=== PATIENT | female | born 2000 | race Caucasian/White ===

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

== ENCOUNTER 2019-02-09 03:21 | Emergency (ER) | payer MEDICAID, SELFPAY ==
[2019-02-09 03:22] VITALS: BP 130/81; PULSE 94; RESP 16; TEMP 36.7; O2SAT 99; BMI 42.3
[2019-02-09 04:09] LABS: Absolute Lymphocyte Count 1.79 X10^3/uL (0.83-4.51); Absolute Neutrophil Count 12.7 X10^3/uL (2.0-7.7); Basophil# 0.07 X10^3/uL; Basophil% 0.4 % (0-1); Eosinophil# 0.12 X10^3/uL; Eosinophils% 0.8 % (0-5); Hematocrit 44.2 % (37-47); Hemoglobin 14.8 g/dL (12.0-15.0); Lymphocyte # 1.79 X10^3/ul (4.0); Lymphocyte % 11.4 % (19-41); Mean Corp Hgb Conc 33.5 g/dL (32-36); Mean Corpuscular Hgb 31.9 pg (27.0-32.0); Mean Corpuscular Volume 95.3 fL (81-99); Mean Platelet Vol. 9.6 fl (6.2-12.0); Monocyte# 0.94 X10^3/uL; NRBC Flagged by Analyzer 0 % (0-5); Neutrophil # 12.69 X10^3/uL (2.7-7.7); Neutrophil % 80.4 % (47-70); Platelet Count 326 K/mm3 (150-450); RBC Distribution Width CV 12.5 % (11.6-14.6); RBC Distribution Width SD 43.1 fl (35.1-43.9); Red Blood Count 4.64 M/mm3 (4.2-5.4); White Blood Count 15.8 K/mm3 (4.4-11.0)
[2019-02-09] MEDS: 0.9% Normal Saline 1,000 ML 1000 ML IV (04:18)
[2019-02-09] MEDS: Ondansetron 4 MG/2 ML Vial IV (04:19)
[2019-02-09 04:22] LABS: Internal QC Validated? YES +Cl - CLEAR BKGD; Pregnancy, Serum, hCG Quali. NEGATIVE Negative
[2019-02-09 04:25] LABS: Mucous, Urine 0 SEEN /hpf (<or=2+); Red Blood Cells-Urine 0 SEEN /hpf (0-5)
[2019-02-09 04:26] LABS: Color, Urine Yellow (Yellow); Glucose, Dipstick Normal (Normal); Ketone-Dipstick Negative (Negative); Leukocyte Esterase-Dipstick 100 /ul (Negative); Nitrite-Dipstick Negative (Negative); Occult Blood-Urine Negative /ul (Negative); Protein-Dipstick Negative (Negative); Urine Bilirubin Dipstick Negative (Negative); Urine Clarity Sl. Cloudy (Clear); Urine Urobilinogen Normal (Normal)
[2019-02-09 04:27] LABS: ALB/GLOB Ratio 0.9 RATIO (0.9-2.4); AST(SGOT) 14 U/L (15-37); Alanine Aminotransfer ALT/SGPT 31 U/L (13-56); Albumin, Serum 3.6 g/dL (3.2-5.0); Alkaline Phosphatase 94 U/L (45-117); Anion Gap 7 (5-15); BUN 7 mg/dL (7-18); BUN/Creat Ratio 9.9 RATIO (10-20); Calcium,Total 8.6 mg/dL (8.5-10.1); Chloride 104 mmol/L (98-107); Creatinine, Serum 0.71 mg/dL (0.55-1.02); EST Glomerular Filtration Rate 113 mL/min (>60); Est Glom Filt Rate - Afr Amer 136 mL/min (>60); Estimated Creatinine Clearance 114.68 ml/min; Glucose 96 mg/dL (74-106); Lipase 82 U/L (73-393); Potassium 4.2 mmol/L (3.5-5.1); Protein, Total 7.6 g/dL (6.4-8.2); Sodium Level 139 mmol/L (136-145)
--- NOTE | 2019-02-09 04:28 | CT_ITS ---
STUDY: CT ABDOMEN AND PELVIS WITH CONTRAST REASON FOR EXAM: Female, 18 years old. Right lower quadrant pain, nausea. RADIATION DOSAGE (If Supplied By Facility): CTDIvol = ( 18.63 ) mGy, DLP = ( 1351.28 ) mGycm TECHNIQUE: Transaxial images were obtained from the dome of the diaphragm to the symphysis pubis with oral contrast. IV/Oral Isovue 300 100 was administered. Sagittal and coronal images were reconstructed. Individualized dose optimization techniques were used for this CT. COMPARISON: None. FINDINGS: The visualized lung bases are unremarkable. The visualized portions of the heart are within normal limits. Normal liver. Normal gallbladder and extrahepatic biliary system. Normal spleen. Normal pancreas. Normal bilateral adrenal glands. Normal right kidney. Normal left kidney. Normal visualized stomach. Normal small intestine. Normal colon. The appendix is visualized and appears normal. Normal abdominal aorta. Normal inferior vena cava. Normal retroperitoneum. Normal urinary bladder. Normal visualized uterus. Normal abdominal wall. There are diffuse degenerative changes of the visualized lumbar spine. CT/Abdomen/Pelvis WITH Contrast IMPRESSION: No acute process throughout the abdomen and pelvis seen. Specifically, no evidence of appendicitis. Abdominal viscera within normal limits. Electronically Signed: Natalee Galloway MD at 7:23 EST , Service support ,
--- NOTE | 2019-02-09 04:29 | ED.DCSUM_ITS ---
- ER Visit Summary Date of Service: 02/09/19 Chief Complaint: Vomiting History of Present Illness: The patient is a 18 F presenting with vomiting. Patient states that she has had several episodes of vomiting today. She denies blood in her emesis. She also complains of right lower quadrant abdominal pain. Denies fever or chills. She has been mildly constipated. Denies bad food exposure. Denies sick contacts. She is unsure if she could be . Denies other complaints. Physical Examination: Vitals are stable. Patient is afebrile. Alert no acute distress. HEENT exam is unremarkable. Neck is supple. Lungs are clear and equal bilaterally. Heart is regular rate and rhythm. Abdomen is soft right lower quadrant tenderness with no rebound or guarding Extremities are unremarkable. Skin is warm and dry. Remainder of exam is unremarkable. Emergency Department Course and Treatment: Patient was given IV fluids, Zofran. CBC shows white count 15.8. Chemistries unremarkable. Lipase is normal. Urinalysis unremarkable. hCG negative. CT abdomen pelvis shows no acute process throughout the abdomen and pelvis seen. Specifically, no evidence of appendicitis. Abdominal viscera within normal limits. Patient was able to tolerate p.o. in the emergency department. On reevaluation, she is resting comfortably. Advised to follow-up with primary care physician. She is given prescription for Zofran. Advised return to the ED for worsening complaints. Disposition: Discharge home Impression: Abdominal pain This note was generated with [employer] dictation software. It may contain incorrect words, spelling, and punctuation that were not noted in review of the chart prior to signing ED Disposition - Plan for ED Patient: Instructions: VOMITING (5y-Adult) Prescriptions: Ondansetron [Zofran Odt] 4 mg PO Q8H PRN PRN #10 tab PRN Reason: Nausea Prescription Printed Referrals: Care Physician,No Primary [Primary Care Provider] -
[2019-02-09 04:31] LABS: Bacteria RARE /hpf (None Seen)
[2019-02-09 04:32] LABS: Squamous Epithelial Cells - UA 0-5 SEEN /hpf (5-10); White Blood Cells 0-5 SEEN /hpf (0-5)
[2019-02-09 05:22] VITALS: BP 132/80; PULSE 89; RESP 17; O2SAT 97
--- NOTE | 2019-02-09 07:26 | ED.DEP ---
ED Disposition - Plan for ED Patient: Instructions: VOMITING (5y-Adult) Prescriptions: Ondansetron [Zofran Odt] 4 mg PO Q8H PRN PRN #10 tablet PRN Reason: Nausea Referrals: Care Physician,No Primary [Primary Care Provider] -
[2019-02-09 07:38] VITALS: BP 97/63; PULSE 93; RESP 16; O2SAT 100
== END 2019-02-09 07:39 | disposition home or self-care (01) ==
PROVIDERS: Emergency Provider Emergency Medicine
DX: R10.31 Right lower quadrant pain (principal); K59.00 Constipation, unspecified; R11.2 Nausea with vomiting, unspecified; Z72.0 Tobacco use
CPT/HCPCS: 74177; 80053; 81001; 83690; 84703; 85025; 96361; 96374; 99283; J7030; Q9967; A4216; J2405

== ENCOUNTER 2019-03-01 07:02 | Emergency (ER) | payer MEDICAID, SELFPAY ==
[2019-03-01 07:04] VITALS: BP 117/46; PULSE 95; RESP 18; TEMP 36.4; O2SAT 98; BMI 42.3
[2019-03-01] MEDS: 0.9% Normal Saline 1,000 ML 1000 ML IV (07:30)
[2019-03-01] MEDS: Ketorolac 30 MG/ML Syringe IV (07:30)
[2019-03-01] MEDS: Ondansetron 4 MG/2 ML Vial IV (07:30)
[2019-03-01 07:37] LABS: Absolute Lymphocyte Count 1.72 X10^3/uL (0.83-4.51); Absolute Neutrophil Count 4.6 X10^3/uL (2.0-7.7); Basophil# 0.02 X10^3/uL; Basophil% 0.3 % (0-1); Eosinophil# 0.15 X10^3/uL; Hematocrit 42.1 % (37-47); Hemoglobin 14.1 g/dL (12.0-15.0); Lymphocyte # 1.72 X10^3/ul (4.0); Lymphocyte % 23.3 % (19-41); Mean Corp Hgb Conc 33.5 g/dL (32-36); Mean Corpuscular Hgb 31.5 pg (27.0-32.0); Mean Platelet Vol. 9.9 fl (6.2-12.0); Monocyte# 0.87 X10^3/uL; Monocyte% 11.8 % (0-10); NRBC Flagged by Analyzer 0 % (0-5); Neutrophil # 4.55 X10^3/uL (2.7-7.7); Neutrophil % 61.8 % (47-70); Platelet Count 303 K/mm3 (150-450); RBC Distribution Width CV 12.7 % (11.6-14.6); RBC Distribution Width SD 43.6 fl (35.1-43.9); Red Blood Count 4.48 M/mm3 (4.2-5.4); White Blood Count 7.4 K/mm3 (4.4-11.0)
--- NOTE | 2019-03-01 07:40 | ED.VISSUMM ---
- ER Visit Summary Date of Service: 03/01/19 Chief Complaint: Vomiting and diarrhea History of Present Illness: The patient is a [address] Ana Solano. She reports that she has upper abdominal pain that began 2 days ago. Yesterday she began vomiting. She vomited 4 times. No blood or emesis. She is had 2 episodes of diarrhea yesterday and today. Describes this as watery. No blood in her stools or black tarry stools. Patient reports that it is a constant cramping pain that is 8 out of 10 at worst and 6 out of 10 currently is worsened by movement. Its unchanged by food. Is relieved by remaining still. She reports that her mother has vomiting and diarrhea as well. She has not been camping or out of the country. No possible bad food exposure. She does not drink well water. No recent antibiotics. Patient denies any fever or chills. She denies any dysuria or frequency. Her LNMP was 3 weeks ago. No vaginal bleeding or discharge. No family history of Crohn's or ulcerative colitis. Physical Examination: Vitals: Stable. Afebrile. General: Well-nourished and well-developed. Head: Normocephalic atraumatic. Neck: Supple, no lymphadenopathy. No JVD. Nontender. Cardiovascular: Regular rate and rhythm. No murmurs. Respiratory: No respiratory distress. Clear to auscultation bilaterally. Abdominal: Soft, moderate epigastric tenderness to palpation and mild left lower quadrant tenderness to palpation, nondistended, normal bowel sounds. No guarding, rebound, or peritoneal signs. No pain in the right upper or right lower quadrants. Negative Plummer sign. Back: Nontender. Extremities: Nontender, no edema. Skin: Normal color, no rash. Neurologic: Alert and oriented ?3. Cranial nerves II through XII are intact. Normal strength and sensation. Psych: Normal affect. Test Results: CBC shows monocytes 12. Chem-7 shows potassium 3.3, chloride 109, calcium of 8.4. test is negative. Emergency Department Course and Treatment: Patient had an IV placed. She is given a liter normal saline. She was given Toradol and Zofran IV. She is resting comfortably. Treatment Plan: Patient will be discharged with Zofran. She is instructed on symptomatic care. Follow-up Dr. Ana Solano in 1 to 2 days if not improving. Return to the emergency department for any worsening symptoms. Disposition: To home in improved and stable condition. Impression: 1. Vomiting/diarrhea. This note was generated with [employer] dictation software. It may contain incorrect words, spelling, and punctuation that were not noted in review of the chart prior to signing ED Disposition - Plan for ED Patient: Instructions: VOMITING AND DIARRHEA, Nonspecific (Adult) Prescriptions: Ondansetron [Zofran Odt] 4 mg PO Q8H PRN PRN #10 tablet PRN Reason: Nausea Referrals: Ana Solano MD [Primary Care Provider] - 1-2 Days if not improving
[2019-03-01 07:53] LABS: Internal QC Validated? YES +Cl - CLEAR BKGD; Pregnancy, Serum, hCG Quali. NEGATIVE Negative
[2019-03-01 07:55] LABS: AST(SGOT) 22 U/L (15-37); Alanine Aminotransfer ALT/SGPT 34 U/L (13-56); Albumin, Serum 3.5 g/dL (3.2-5.0); Alkaline Phosphatase 94 U/L (45-117); Anion Gap 7 (5-15); BUN 9 mg/dL (7-18); BUN/Creat Ratio 11.2 RATIO (10-20); Calcium,Total 8.4 mg/dL (8.5-10.1); Chloride 109 mmol/L (98-107); Creatinine, Serum 0.81 mg/dL (0.55-1.02); EST Glomerular Filtration Rate 97 mL/min (>60); Est Glom Filt Rate - Afr Amer 117 mL/min (>60); Estimated Creatinine Clearance 100.52 ml/min; Globulin 3.4 g/dL (2.2-4.2); Glucose 101 mg/dL (74-106); Lipase 110 U/L (73-393); Potassium 3.3 mmol/L (3.5-5.1); Protein, Total 6.9 g/dL (6.4-8.2); Sodium Level 142 mmol/L (136-145)
[2019-03-01 08:38] VITALS: BP 109/47; PULSE 82; RESP 16; O2SAT 100
== END 2019-03-01 08:39 | disposition home or self-care (01) ==
LOC: ED 07:47
PROVIDERS: Emergency Provider Emergency Medicine; Family Provider Pediatrics; PCP Pediatrics
DX: R11.2 Nausea with vomiting, unspecified (principal); R19.7 Diarrhea, unspecified; R10.10 Upper abdominal pain, unspecified; R05 Cough
CPT/HCPCS: 80053; 83690; 84703; 85025; 96361; 96374; 96375; 99283; J2405

== ENCOUNTER 2019-11-15 15:05 | Emergency (ER) | payer MEDICAID, SELFPAY ==
[2019-11-15 15:05] VITALS: BP 154/95; PULSE 87; RESP 18; TEMP 36.3; O2SAT 96; BMI 43.9
[2019-11-15 15:30] LABS: Bacteria 0 SEEN /hpf (None Seen); Mucous, Urine 0 SEEN /hpf (<or=2+)
[2019-11-15 15:33] LABS: Glucose, Dipstick Normal (Normal); Ketone-Dipstick 5 mg/dl (Negative); Leukocyte Esterase-Dipstick 500 /ul (Negative); Nitrite-Dipstick Negative (Negative); Occult Blood-Urine 250 /ul (Negative); Protein-Dipstick 100 mg/dl (Negative); Urine Bilirubin Dipstick Negative (Negative); Urine Urobilinogen Normal (Normal)
[2019-11-15 15:34] LABS: Color, Urine RED (Yellow)
[2019-11-15 15:35] LABS: Urine Clarity Cloudy (Clear)
[2019-11-15 15:40] LABS: Internal QC Validated? YES +Cl - CLEAR BKGD; Pregnancy, Urine Negative Negative
[2019-11-15 15:44] LABS: Red Blood Cells-Urine > 100 SEEN /hpf (0-5); Squamous Epithelial Cells - UA 0-5 SEEN /hpf (5-10); White Blood Cells 10-25 SEEN /hpf (0-5)
--- NOTE | 2019-11-15 15:48 | ED.VIS.GEN ---
History of Present Illness Informant: Patient Onset: Yesterday Context: Gradual Onset Timing: Continuous Quality: bleeding Location: vaginal bleeding Current Severity: Moderate Maximum Severity: Severe Worsened by: Nothing Relieved by: nothing Narrative: 19-year-old female presents to the emergency department vaginal bleeding. Patient had a normal menstrual cycle earlier this month about 2-1/2 to 3 weeks ago. However yesterday she started to have more bleeding and she states that it is similar in severity to 1 of her regular menstrual cycles including the one that she already had this month. She is not having any significant pain. She is not concerned for . She is not on any blood thinners. She is not having urinary symptoms. She does not feel lightheaded or dizzy. She has never needed a blood transfusion. She has not noticed any clots or tissue. Rest of review of systems negative Prior similar symptoms: No Recent Illness/Hospitalization: No <Marcus Vee - Last Filed: 11/15/19 16:53> <Dedra Yen - Last Filed: 11/16/19 00:54> Chief Complaint: Vag Bleeding Past Medical History Prior records reviewed: Yes Past Medical History: None Surgical History: no surgical history Lives: With Family Smoking Status: Former smoker Alcohol: None Drugs: None <Marcus Vee - Last Filed: 11/15/19 16:53> <Dedra Yen - Last Filed: 11/16/19 00:54> - Allergies and Home Meds Allergies/Adverse Reactions: Allergies amoxicillin Allergy (Verified 11/15/19 15:07) Rash codeine Adverse Reaction (Verified 11/15/19 15:07) PASSED OUT Primary Care Physician: Rafael Addison MD [STAFF PHYSICIAN] - As soon as possible [facility] [GROUP OF PHYSICIANS] - 11/18/19 Review of Systems All systems negative except as indicated General: Denies: Chills, Fever, Sweats Eyes: Denies: Visual changes - bilaterally, Diplopia ENT: Denies: Rhinorrhea, Sore throat Cardiovascular: Denies: Chest pain, Palpitations Respiratory: Denies: Dyspnea, Cough, Dyspnea on exertion Gastrointestinal: Denies: Abdominal pain, Nausea, Vomiting, Diarrhea, Melena, Hematochezia Genitourinary: Reports: - - Vaginal bleeding. Denies: Dysuria, Hematuria, Frequency Musculoskeletal: Denies: Back pain, Extremity Pain Skin: Denies: Rash, Wounds Neurological: Denies: Headache, Weakness, Numbness <Marcus Vee - Last Filed: 11/15/19 16:53> Physical Exam Vital Signs/Narrative: Vital Signs Temp Pulse Resp BP Pulse Ox 11/15/19 15:05 97.3 F L 87 18 154/95 H 96 Inital Vital Signs reviewed: Yes General: Well nourished, Well developed, No Acute Distress Head: Normocephalic, Atraumatic Eyes: Perrl, EOMI ENT: Moist mucous membranes, No rhinorrhea Neck: Supple, Nontender Cardiovascular: Regular rate, Regular rhythm, No murmurs Respiratory: No distress, CTA bilaterally, Chest nontender Abdomen: Soft, Nontender, Nondistended, Normal bowel sounds Back: Nontender, Normal Inspection. Negative for: CVA tenderness Extremities: Nontender, No edema Skin: Normal color, No rash Neurological: Alert, Oriented x3, Cranial nerves II-XII grossly intact, Normal Strength, Normal Sensation Psychological: Normal affect, Normal Mood <NandaMarcus - Last Filed: 11/15/19 16:53> Diagnostic/Tx/Re-eval Laboratory Tests 11/15/19 11/15/19 Range/Units 15:20 15:20 Urine Color RED (Yellow) Urine Clarity Cloudy (Clear) Urine pH 5.0 (5.0 - 8.0) Ur Specific Mathews 1.020 (1.002-1.030) Urine Protein 100 H (Negative) mg/dl Urine Glucose (UA) Normal (Normal) mg/dl Urine Ketones 5 H (Negative) mg/dl Urine Occult Blood 250 H (Negative) /ul Urine Nitrite Negative (Negative) Urine Bilirubin Negative (Negative) mg/dL Urine Urobilinogen Normal (Normal) mg/dl Ur Leukocyte Esterase 500 H (Negative) /ul Urine RBC > 100 SEEN (0-5) /hpf Urine WBC 10-25 SEEN (0-5) /hpf Ur Squamous Epith Cells 0-5 SEEN (5-10) /hpf Urine Bacteria 0 SEEN (None Seen) /hpf Urine Mucus 0 SEEN (<or=2+) /hpf Urine Test Negative Negative - Medical Decision Making Patient's was negative. Urinalysis negative. Patient has told nurse that she feels depressed therefore she did speak with her manager social responsibility. The patient is not suicidal or homicidal. The manager social responsibility set her up to have an appointment on Monday with the intensive outpatient behavioral health program. The patient is contracted for safety. She has no guns or stockpile of medications at the home. She has lots of reasons for living. We feel comfortable with discharging the patient. She will follow-up on Monday <Marcus Vee - Last Filed: 11/15/19 16:53> - Medical Decision Making I have personally performed a [id number] assessment of the patient and have reviewed the PA note. My campoverde findings include 19-year-old female presenting for irregular vaginal bleeding. She states that she had a menstrual period earlier in October and started having bleeding again. She denies pelvic pain. Denies lightheadedness or syncope. She denies possibility of . Vitals were stable. Abdomen is soft and nontender. test was negative. Patient mentioned to the nurse that she has been feeling depressed. She was evaluated by social work in the emergency department. She was set up for outpatient follow-up. She denies suicidal or homicidal ideation. Advised return to the ED for worsening complaints. <Dedra Yen - Last Filed: 11/16/19 00:54> ED Disposition <Marcus Vee - Last Filed: 11/15/19 16:53> <Dedra Yen - Last Filed: 11/16/19 00:54> - Plan for ED Patient: Disposition: Home or Assisted Living Diagnosis: Dysmenorrhea, Depression Instructions: ED Depression, ED Bleed Irregular Vaginal Referrals: Rafael Addison MD [STAFF PHYSICIAN] - As soon as possible [facility] [GROUP OF PHYSICIANS] - 11/18/19
[2019-11-15 17:07] VITALS: RESP 16
--- NOTE | 2019-11-15 17:07 | ED.RN ---
REVIEWED D/C INSTRUCTIONS, FOLLOW UP CARE, AND S/S THAT WOULD WARRANT A RETURN TO THE ED WITH PT. PT VERBALIZED AN UNDERSTANDING AND DENIES FURTHER QUESTIONS FOR THIS RN. PT SKIN P/W/D, RESP EVEN AND UNLABORED, PT A&O X 3, NO DISTRESS NOTED. PT AMBULATED OUT OF ED, GAIT STEADY.
--- NOTE | 2019-11-15 17:13 | CM.ED ---
Social Work Assessment Emergency department Patient Address: [address] [place] [address] ([place] [address] [place] [address] Rd[address]) Phone number: [phone] Date of Referral and intervention: 11/15/2019 Time of Intervention: 1540 5-1700 Presenting concern: Patient presents to emergency department with complaints of vaginal bleeding and concern for . Reason for Referral: During triage assessment for concerns related to vaginal bleeding the patient endorsed also feeling depressed without suicidal ideation. History obtained from: Medical records and the patient Household composition: Patient reports to live with a close family friend named Mignon, and Mignon's 2 children ages 5 and 3 years old. Patient states home situation is safe and adequate. Patient's family status: Patient is a 19-year-old single female. Patient reports her mother is a local, along with an 18-year-old sister. Medical History: Patient reports concern for vaginal bleeding because she already had her menstrual cycle earlier in October. Patient endorses history of an elective a couple of years ago, and then a miscarriage in December 2018. Patient reports a couple of years ago there was possible concern about thyroid issues, but patient has not followed up about this. Educational Status: Patient graduated from high school, and is able to read, write, and understand what is read. 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 Transportation: Patient denies any issues with transportation. Patient drove herself to the emergency department. Programs/Agencies Involved: Patient has care source Medicaid through job and family services. Children Services/Legal Issues: Not discussed. Behavioral Health Issues: Mental Health History: Patient reports has been diagnosed with depression since the age of 17. Patient endorses anxiety also. Patient reports at the onset of depression diagnosis patient was prescribed Lexapro by Dr. Ana Solano. Reports took this medication for only 1 month, felt like it was not helping, and stopped. Denies any other medication history since that time. Patient reports while in high school did have counseling at [facility]. Patient does endorse a trauma history, though did not go into detail of this. Did indicate trauma history going back to childhood, and also coinciding with the that resulted in an elective . SI/HI history: Patient endorses history of 1 suicide attempts about 5 months ago (the end of winter/beginning of spring 2019). Patient reports that she went to the bathroom and took some pills. Patient reports she does not remember what kind of pills, or how many pills she took. No medical treatment was sought. Patient reports Mignon called patient's mother, mother's boyfriend, and patient's siblings. Family then called the police who arrived to the home and talk to the patient. Patient reports she told everybody she was really okay, and minimized her actions. Patient denies any action regarding self-harm or suicide since that 1 episode. Denies any history of self injury. Denies any history of homicidal ideation, plan, or intent. When asked about homicidal ideation patient's response was I am not crazy. Substance Use History: Not discussed. No indication record regarding substance use concerns. Family History: Patient reports family history of depression and anxiety. Patient reports her sister may have just been diagnosed with bipolar disorder. Drug Screens: No drug screens noted. Coping Skills: Patient reports to enjoy fishing, listening to music, and talking with Mignon. Family/Social Stressors: Patient reports a miscarriage in December 2018. Reports her grandmother recently had a stroke, was in [place] [facility], and recently discharged home. Patient reports that between patient's mother and patient herself they are providing supplemental care to the patient's grandmother. Patient reports that she broke up with her boyfriend of 1 year in July, in order to try to find herself. Patient reports would like to have a job, and feels that she needs something to do. Patient also identifies stress from worrying that we will never be able to become and keep the , due to history of elective (via pill form) a couple of years ago. Support Systems: Patient reports Mignon is a strong support person in patient's life. Patient talks about several friends and does have family in this area. ASSESSMENT: Met with patient and introduced to social work role and reason for visit. Patient endorses having depression for a couple of years. Endorses over the last couple of months that has been a buildup of things causing patient to feel overwhelmed, as patient does not talk about what is bothering her. PHQ 9: Patient with a score of 13 today on the PHQ 9 falling into the moderate range of depression. More than half days endorsed for feeling down and depressed, difficulty sleeping, fluctuating appetite, and feeling bad about herself. All other symptoms were several days over the last 2 weeks including thoughts of being better off , without active plan/ideation plan/intent to kill or harm herself.. Patient reports that does not want to have these thoughts of wanting to or no longer be here, and reports that it upsets patient even more that she is having these thoughts. Patient denies when thoughts are present, that there have been any movements towards planning, determining the method, or intent/action to harm herself. Patient denies any action or intent to kill self since the one episode patient endorsed happening 5 months ago. Denies any access to lethal means such as firearms or stockpiled medications. Reason to live: Patient states that the children living in the home with are a strong reason for the patient to want to live. Patient also states to be a [employer] and this is another factor in why patient would not actually want to take her life. Patient also reports to know that if takes own life this would create more sadness in others and does not want to do this. Coping skills: Fishing, listening to music, cleans, and talks to Mignon. Plan for safety: Should any thoughts of wanting to surface patient verbally contracts to talk with Mignon. Patient states to feel safe and denies any intent to harm herself, or any active thoughts to harm herself. Mental status: Patient alert and oriented, affect constricted and body posture tense upon social work entering the room. Patient teary-eyed, and quickly moved to openly crying. Noted when patient was discussing the children who live in the home, patient's affect brightened and patient smiled. Eye contact adequate, thought process logical and intact, speech within normal limits, motor activity within normal limits. Mood depressed/sad. Patient denies any hallucinations or delusions. Does endorse periodically feeling a tingling and like bugs are crawling on her skin when she is going to sleep. Explored with patient what the patient is willing to do at this time for her emotional health. Patient acknowledges that depression is not getting better and it may be time to add additional support. Patient initially hesitant about counseling, voicing belief that all counselors want to do is focus on the past. Educated patient to various reasons as to why counselors often explore past history, but that many counselors will create goals that align with patient's own goals for recovery. Discussed individual counseling, intensive outpatient programming, and medications. Patient does not currently have a primary care doctor other than her clinical laboratory technician whom patient has not seen in some time. Patient reports may call the clinical laboratory technician to see if can get an appointment. Patient accepted brochures on the [facility] intensive outpatient program and agreed to a referral for an assessment. Reviewed dates and times with patient, and patient chose 11/18/2019 at 1400 for assessment with behavioral health staff. Patient was educated that part of the intensive outpatient programming is group treatment. Interventions: Supportive listening, encouragement, and reflection provided with patient this date. Referral to [facility] program set referral form faxed to [phone]. PLAN: Patient to discharge home. Follow-up at [facility] program set for assessment on 11.18.2019 at 1400. No other services requested or indicated. -RYNE Banegas MSW *Information documented in this assessment generated with [employer]*
== END 2019-11-15 17:12 | disposition home or self-care (01) ==
PROVIDERS: Emergency Provider Physician Assistant Medical
DX: N94.6 Dysmenorrhea, unspecified (principal); F32.9 Major depressive disorder, single episode, unspecified; Z87.891 Personal history of nicotine dependence
CPT/HCPCS: 81001; 81025; 99283

== ENCOUNTER 2020-01-21 16:27 | Emergency (ER) | payer MEDICAID, SELFPAY ==
[2020-01-21 16:28] VITALS: BP 147/81; PULSE 97; RESP 17; TEMP 36.4; O2SAT 98; BMI 43.3
--- NOTE | 2020-01-21 16:56 | ED.VIS.GEN ---
History of Present Illness Chief Complaint: Nausea/Vomiting/Diarrhea Informant: Patient Onset: Yesterday Context: Gradual Onset Timing: Continuous Current Severity: Moderate Maximum Severity: Moderate Narrative: The patient is a 19-year-old female who is otherwise healthy that presents to the emergency department due to concern for foodborne illness. Patient states that she had [place] last night. She states that a few hours later, she began with some abdominal cramping. She is had a few bouts of vomiting that has been nonbloody or nonbilious. She is also had some loose, watery diarrhea. She denies any fevers or chills. She states she did take some ibuprofen which seemed to help. She states now, she is just having some nausea. She denies any other systemic complaints. She is otherwise been in her normal state of health. Prior similar symptoms: No Recent Illness/Hospitalization: No Past Medical History - Allergies and Home Meds Allergies/Adverse Reactions: Allergies amoxicillin Allergy (Verified 01/21/20 16:28) Rash codeine Adverse Reaction (Verified 01/21/20 16:28) PASSED OUT Primary Care Physician: Care Physician,No Primary [Primary Care Provider] - Prior records reviewed: Yes Past Medical History: None Surgical History: no surgical history Smoking Status: Former smoker Review of Systems General: Denies: Chills, Fever, Sweats Eyes: Denies: Visual changes - bilaterally, Diplopia ENT: Denies: Rhinorrhea, Sore throat Cardiovascular: Denies: Chest pain, Palpitations Respiratory: Denies: Dyspnea, Cough, Dyspnea on exertion Gastrointestinal: Denies: Abdominal pain, Nausea, Vomiting, Diarrhea, Melena, Hematochezia Genitourinary: Denies: Dysuria, Hematuria, Frequency Musculoskeletal: Denies: Back pain, Extremity Pain Skin: Denies: Rash, Wounds Neurological: Denies: Headache, Weakness, Numbness Physical Exam Vital Signs/Narrative: Vital Signs Temp Pulse Resp BP Pulse Ox 01/21/20 16:28 97.5 F L 97 17 147/81 H 98 Inital Vital Signs reviewed: Yes General: Well nourished, Well developed, No Acute Distress Head: Normocephalic, Atraumatic Eyes: Perrl, EOMI ENT: Moist mucous membranes, No rhinorrhea Neck: Supple, Nontender Cardiovascular: Regular rate, Regular rhythm, No murmurs Respiratory: No distress, CTA bilaterally, Chest nontender Abdomen: Soft, Nontender, Nondistended, Normal bowel sounds Back: Nontender, Normal Inspection Extremities: Nontender, No edema Skin: Normal color, No rash Neurological: Alert, Oriented x3, Cranial nerves II-XII grossly intact, Normal Strength, Normal Sensation Psychological: Normal affect, Normal Mood Diagnostic/Tx/Re-eval - Medical Decision Making Patient's abdomen is soft and nontender. She has no rebound or guarding. Her symptoms do seem most consistent with foodborne illness. I do not feel that laboratory evaluation is necessary. Patient was given oral Zofran and observed. She did have some improvement of her nausea. P.o. challenge was given. She was able to tolerate it with resolution of symptoms. The patient will be treated symptomatically. She will be discharged home. Impression 1. Gastroenteritis ED Disposition - Plan for ED Patient: Instructions: ED Food Poison Or Gastroenteritis Prescriptions: Ondansetron [Zofran Odt] 4 mg PO Q8H PRN PRN #10 tab PRN Reason: Nausea Prescription Printed Referrals: Care Physician,No Primary [Primary Care Provider] -
[2020-01-21] MEDS: Ondansetron ODT 4 MG Tablet PO (17:18)
[2020-01-21 17:41] VITALS: RESP 18
== END 2020-01-21 18:52 | disposition home or self-care (01) ==
LOC: ED 17:12
PROVIDERS: Emergency Provider Emergency Medicine
DX: K52.9 Noninfective gastroenteritis and colitis, unspecified (principal)
CPT/HCPCS: 99281

== ENCOUNTER 2020-02-03 11:23 | Emergency (ER) | payer MEDICAID, SELFPAY ==
[2020-02-03 11:24] VITALS: BP 136/83; PULSE 102; RESP 18; TEMP 36.4; O2SAT 99; BMI 39.4
--- NOTE | 2020-02-03 11:42 | ED.VIS.PSYCH ---
History of Present Illness Chief Complaint: Mental Health Informant: Patient Onset: - - Long time Context: Gradual Onset Conflict: - - Life Timing: Continuous Current Severity: Moderate Maximum Severity: Moderate Associated Symptoms: Depressed, Decreased Interest, Suicidal Thoughts. Negative for: Change in Eating, Change in sleeping, Guilt, Decreased Concentration Specific plan (suicidal thought): No suicidal ideation or plan Narrative: Patient has been having thoughts of suicide, and she has longstanding depression. She states she used to be on Lexapro but it did not work too well for her, so she stopped taking it herself and this was about a year or so ago. She denies any injury or self injury. No recent illness. She does not want to harm herself, she really just wants to get into a counselor and someone that might be able to prescribe her an antidepressant, she is unaware of any local resources. - Past Medical History (1) Depression Status: Chronic Past Medical History - Allergies and Home Meds Allergies/Adverse Reactions: Allergies amoxicillin Allergy (Verified 02/03/20 11:23) Rash codeine Adverse Reaction (Verified 02/03/20 11:23) PASSED OUT Primary Care Physician: Care Physician,No Primary [Primary Care Provider] - Surgical History: no surgical history Smoking Status: Former smoker Drugs: None Review of Systems General: Denies: Chills, Fever, Sweats Eyes: Denies: Visual changes - bilaterally, Diplopia ENT: Denies: Rhinorrhea, Sore throat Cardiovascular: Denies: Chest pain, Palpitations Respiratory: Denies: Dyspnea, Cough, Dyspnea on exertion Gastrointestinal: Denies: Abdominal pain, Nausea, Vomiting, Diarrhea, Melena, Hematochezia Genitourinary: Denies: Dysuria, Hematuria, Frequency Musculoskeletal: Denies: Back pain, Extremity Pain Skin: Denies: Rash, Wounds Neurological: Denies: Headache, Weakness, Numbness Psych: Reports: Depression, Suicidal thoughts. Denies: Anxiety, Suicidal ideations Physical Exam Vital Signs/Narrative: Vital Signs Temp Pulse Resp BP Pulse Ox 02/03/20 11:24 97.6 F L 102 H 18 136/83 H 99 Inital Vital Signs reviewed: Yes General: Well nourished, Well developed, - - Well-appearing no acute distress, pleasant, cooperative Head: Normocephalic, Atraumatic Eyes: Perrl, EOMI Neck: Supple, Nontender Cardiovascular: Regular rate, Regular rhythm, No murmurs. Negative for: Tachycardia Respiratory: No distress, CTA bilaterally, Chest nontender Extremities: Nontender, No Edema Skin: Normal color, No rash Neurological: Alert, Oriented x3, Cranial nerves II-XII grossly intact, Normal Strength, Normal Sensation Psych: Normal Speech Pattern, Logical sequential goal directed thoughts, No suicidal or homicidal ideation, Normal Stable Appropriate Affect, Good Insight, Good Judgement Diagnostic/Tx/Re-eval Patient states she contracts for safety and has no intent on harming herself, and feels safe until she can follow-up with mental health. She was given resources, I do not think she needs an emergent crisis evaluation, and we did contact them to discuss with him the fact that we would like her to be seen within the next 1 to 2 weeks if possible. Patient is also given resources and reasons to return and she is comfortable with that plan. ED Disposition - Plan for ED Patient: Disposition: Home or Assisted Living Diagnosis: Depression Instructions: ED Depression, CONTRACT, No Harm Referrals: Counseling,Center [GROUP OF PHYSICIANS] - As soon as possible Emmie Jett MD [STAFF PHYSICIAN] - (for primary care/medications if indicated)
--- NOTE | 2020-02-03 12:02 | CM.ED ---
Social Work Consult: Mental Health Informant: Dr. Espinal Chief Complaint: Patient reports to have been off Lexapro for the past 2 years, to need to set up a counselor and to not have a primary care provider (PCP). Living Situation: Lives with mother, Yumiko Rincon at [address] [place] [address] Support/Resources: History of counseling through [facility] when I was younger. No active counseling services or community resources. History: None Education/Employment History: Currently works at [employer]. Denies any issues with comprehension or understanding. Mental Health Treatment/History: Denies having any formal diagnosis. Patient reports to believe that patient has Depression and Anxiety. Patient reports mental health history in patient family. Patient denies any history of inpatient psychiatric placement. Patient reports to have been on Lexapro in the past but it did not work. Patient is open to taking medication again, if recommended. Abuse Issues: Denies Substance Abuse Hx: Denies Risk to Self/Others: Denies active suicidal thoughts/plans/intents. Patient reports history of suicidal thoughts about 1 year ago. Patient denies history of suicidal attempt. Patient denies ever thinking out how patient would complete suicide. Patient denies homicidal thoughts/plans/intents. Patient denies history of violence against self or others. Mental Status Exam: A&Ox3 Appearance/General Behavior: Clean, Appropriate. Calm. Mood/Affect: Pleasant and engaged affect. Communication Pattern: Responds to questions. Thought Process: Appropriate. Denies V/A hallucinations or paranoia. Judgement: Good Assessment: Met with patient in room. Introduced self and social staff worker role. Patient agreeable to speak with this social staff worker. Patient reports a desire to get connected with counseling services/supports in the community. Patient open to this social staff worker providing list of local counseling agencies, crisis hotline, [facility] Behavioral Health information. This social staff worker also notes that patient does not have a PCP. Patient open to receive list of PCP's that are in-network with patient insurance. Patient voices plan to set up PCP. Patient reports to be glad that patient co-worker brought patient to the emergency room today. Patient counseled on lethal means. Patient reports to have support from family. Patient agreeable to have crisis complete a follow up call with patient tomorrow to set up further counseling services/offer support. Patient reports to have transportation to home today. Patient denies further community needs. Active support and listening provided throughout conversation. Patient signing release of [facility]. Telephone call to Crisis, Amanda. Amanda to follow up with patient tomorrow. This social staff worker faxed release of information, face sheet and social work note to crisis. This social staff worker updated Dr. Espinal on above. PLAN: Discharge to home with crisis follow-up call tomorrow. Deni DAO, YADIRA
--- NOTE | 2020-02-03 12:13 | ED.RN ---
DISCHARGE INSTRUCTIONS GIVEN TO AND REVIEWED WITH PATIENT, PATIENT DENIES QUESTIONS OR CONCERNS AND VOICES UNDERSTANDING OF DISCHARGE INSTRUCTIONS. PT AMBULATES OUT OF ROOM WITHOUT DIFFICULTY.
== END 2020-02-03 12:14 | disposition home or self-care (01) ==
LOC: ED 12:01
PROVIDERS: Emergency Provider Emergency Medicine
DX: F32.9 Major depressive disorder, single episode, unspecified (principal); R45.851 Suicidal ideations; Z87.891 Personal history of nicotine dependence
CPT/HCPCS: 99282

== ENCOUNTER 2020-05-25 14:32 | Emergency (ER) | payer MEDICAID, SELFPAY ==
[2020-05-25 14:33] VITALS: BP 144/94; PULSE 107; RESP 18; TEMP 36.1; O2SAT 98; BMI 43.7
--- NOTE | 2020-05-25 14:42 | ED.DCSUM_ITS ---
History of Present Illness Chief Complaint: Abd Pain Informant: Patient Narrative: 19-year-old female G1, presenting with pelvic cramping. She states has been present for 4 days. She describes it as central. She has associated nausea. Patient has not been vomiting. She denies change in bowel habits. She is not had any vaginal bleeding or vaginal discharge. She denies dysuria or hematuria. Patient states the pain is about the same as its been for the last 4 days. She is not had fever, chills. - Past Medical History (1) Depression Status: Chronic Past Medical History - Allergies and Home Meds Allergies/Adverse Reactions: Allergies amoxicillin Allergy (Verified 05/25/20 14:36) Rash codeine Adverse Reaction (Verified 05/25/20 14:36) PASSED OUT Primary Care Physician: Care Physician,No Primary [Primary Care Provider] - Prior records reviewed: Yes Past Medical History: - - Reviewed in problem list Surgical History: no surgical history Lives: Alone Smoking Status: Former smoker Alcohol: None Drugs: None Review of Systems General: Denies: Chills, Fever, Sweats Eyes: Denies: Visual changes - bilaterally, Diplopia ENT: Denies: Rhinorrhea, Sore throat Cardiovascular: Denies: Chest pain, Palpitations Respiratory: Denies: Dyspnea, Cough, Dyspnea on exertion Gastrointestinal: Reports: Nausea. Denies: Abdominal pain, Vomiting Genitourinary: Reports: - - Pelvic pain. Denies: Dysuria, Hematuria Musculoskeletal: Denies: Myalgias, Arthralgias Skin: Denies: Rash, Abscess Neurological: Denies: Headache, Weakness, Parasthesia Psych: Denies: Depression, Anxiety Physical Exam Vital Signs/Narrative: Vital Signs Temp Pulse Resp BP Pulse Ox 05/25/20 14:33 97.0 F L 107 H 18 144/94 H 98 Inital Vital Signs reviewed: Yes General: Well nourished, No Acute Distress Head: Normocephalic, Atraumatic Eyes: Perrl ENT: Moist mucous membranes, No rhinorrhea Cardiovascular: Regular rate, Regular rhythm Respiratory: No distress, CTA bilaterally Back: Negative for: CVA tenderness, Spinal tenderness Skin: Normal color, No rash Neurological: Alert, Oriented x3 Psychological: Normal affect, Normal Mood Diagnostic/Tx/Re-eval Laboratory Data 05/25/20 05/25/20 05/25/20 14:55 14:55 14:59 WBC 11.9 H RBC 4.45 Hgb 15.0 Hct 42.2 MCV 94.8 MCH 33.7 H MCHC 35.5 RDW Std Deviation 45.1 H RDW Coeff of Sherry 14.5 Plt Count 283 MPV 10.2 Immature Gran % (Auto) 0.800 Neut % (Auto) 73.9 H Lymph % (Auto) 16.9 L [place] % (Auto) 7.1 Eos % (Auto) 1.0 Baso % (Auto) 0.3 Absolute Neuts (auto) 8.8 H Absolute Lymphs (auto) 2.02 Nucleated RBC % 0 Sodium 140 Potassium 4.0 Chloride 108 H Carbon Dioxide 27.0 Anion Gap 5 BUN 9 Creatinine 0.85 Estim Creat Clear Calc 91.17 Est GFR (MDRD) Af Amer 109 Est GFR (MDRD) Non-Af 90 BUN/Creatinine Ratio 10.6 Glucose 98 Calcium 9.0 Urine Color Yellow Urine Clarity Sl. Cloudy Urine pH 6.0 Ur Specific [place] 1.020 Urine Protein 30 H Urine Glucose (UA) Normal Urine Ketones Negative Urine Occult Blood 10 H Urine Nitrite Negative Urine Bilirubin Negative Urine Urobilinogen 1 H Ur Leukocyte Esterase 500 H Urine RBC 0-5 SEEN Urine WBC 10-25 SEEN Ur Squamous Epith Cells 0-5 SEEN Amorphous Sediment 1+ URATE Urine Bacteria 0 SEEN Urine Mucus 0 SEEN Urine Test Negative - Medical Decision Making Patient presenting with pelvic pain without any vaginal discharge or vaginal bleeding. She states her last menstrual period was about a month ago. Patient also states that this time that she has a history of ovarian cyst. Patient given IV Toradol with near complete resolution of her pain. Her lab work is unremarkable. Patient offered transvaginal ultrasound but declines. Patient counseled that if she has worsening of her pain or needs to be reseen to come back to the ER. She acknowledged understanding. Patient stable discharge at this time. Impression: 1. Pelvic pain ED Disposition - Plan for ED Patient: Referrals: Care Physician,No Primary [Primary Care Provider] -
[2020-05-25 15:08] LABS: Bacteria 0 SEEN /hpf (None Seen); Mucous, Urine 0 SEEN /hpf (<or=2+)
[2020-05-25 15:10] LABS: Absolute Lymphocyte Count 2.02 X10^3/uL (0.83-4.51); Absolute Neutrophil Count 8.8 X10^3/uL (2.0-7.7); Basophil# 0.04 X10^3/uL; Basophil% 0.3 % (0-1); Eosinophil# 0.12 X10^3/uL; Hematocrit 42.2 % (37-47); Lymphocyte # 2.02 X10^3/ul (4.0); Lymphocyte % 16.9 % (19-41); Mean Corp Hgb Conc 35.5 g/dL (32-36); Mean Corpuscular Hgb 33.7 pg (27.0-32.0); Mean Corpuscular Volume 94.8 fL (81-99); Mean Platelet Vol. 10.2 fl (6.2-12.0); Monocyte# 0.85 X10^3/uL; Monocyte% 7.1 % (0-10); NRBC Flagged by Analyzer 0 % (0-5); Neutrophil # 8.81 X10^3/uL (2.7-7.7); Neutrophil % 73.9 % (47-70); Platelet Count 283 K/mm3 (150-450); RBC Distribution Width CV 14.5 % (11.6-14.6); RBC Distribution Width SD 45.1 fl (35.1-43.9); Red Blood Count 4.45 M/mm3 (4.2-5.4); White Blood Count 11.9 K/mm3 (4.4-11.0)
[2020-05-25 15:13] LABS: Color, Urine Yellow (Yellow); Glucose, Dipstick Normal (Normal); Ketone-Dipstick Negative (Negative); Leukocyte Esterase-Dipstick 500 /ul (Negative); Nitrite-Dipstick Negative (Negative); Occult Blood-Urine 10 /ul (Negative); Protein-Dipstick 30 mg/dl (Negative); Urine Bilirubin Dipstick Negative (Negative); Urine Clarity Sl. Cloudy (Clear); Urine Urobilinogen 1 mg/dl (Normal)
[2020-05-25 15:21] LABS: Amorphous Sediment 1+ URATE; Internal QC Validated? YES +Cl - CLEAR BKGD; Pregnancy, Urine Negative Negative; Red Blood Cells-Urine 0-5 SEEN /hpf (0-5); Squamous Epithelial Cells - UA 0-5 SEEN /hpf (5-10); White Blood Cells 10-25 SEEN /hpf (0-5)
[2020-05-25 15:23] LABS: Anion Gap 5 (5-15); BUN 9 mg/dL (7-18); BUN/Creat Ratio 10.6 RATIO (10-20); Chloride 108 mmol/L (98-107); Creatinine, Serum 0.85 mg/dL (0.55-1.02); EST Glomerular Filtration Rate 90 mL/min (>60); Est Glom Filt Rate - Afr Amer 109 mL/min (>60); Estimated Creatinine Clearance 91.17 ml/min; Glucose 98 mg/dL (74-106); Sodium Level 140 mmol/L (136-145)
[2020-05-25] MEDS: Ketorolac 15 MG/ML Vial IV (16:22)
[2020-05-25] MEDS: Ondansetron 4 MG/2 ML Vial IV (16:22)
[2020-05-25 17:30] VITALS: BP 133/78; PULSE 91; RESP 16; O2SAT 99
== END 2020-05-25 17:31 | disposition home or self-care (01) ==
PROVIDERS: Emergency Provider Student in an Organized Health Care Education/Training Program
DX: R10.2 Pelvic and perineal pain (principal); R11.0 Nausea; Z87.891 Personal history of nicotine dependence
CPT/HCPCS: 80048; 81001; 81025; 85025; 96374; 96375; 99282; A4216; J2405

== ENCOUNTER → 2020-06-04 13:44 | Outpatient (CLI) | payer MEDICAID, SELFPAY ==
[2020-05-25 14:33] VITALS: BMI 43.7
[2020-06-04 14:55] LABS: Hemoglobin 14.7 g/dL (12.0-15.0); Mean Corp Hgb Conc 33.4 g/dL (32-36); Mean Corpuscular Volume 92.8 fL (81-99); Mean Platelet Vol. 10.4 fl (6.2-12.0); Platelet Count 401 K/mm3 (150-450); RBC Distribution Width CV 12.6 % (11.6-14.6); RBC Distribution Width SD 43.6 fl (35.1-43.9); Red Blood Count 4.74 M/mm3 (4.2-5.4); White Blood Count 11.2 K/mm3 (4.4-11.0)
[2020-06-04 15:13] LABS: hCG Titer Quant., Serum < 1 mIU/mL (1-3)
[2020-06-04 15:15] LABS: Hemoglobin A1c 4.5 % (3.8-5.6)
[2020-06-04 15:22] LABS: Cholesterol 164 mg/dL (200); Follicle Stimulating Hormone 4.2 mIU/mL; High Density Lipoprotein 59 mg/dL; Luteinizing Hormone 11.9 mIU/mL; Prolactin 7.3 ng/mL; T4 Free Direct 1.03 ng/dL (0.76-1.46); Thyroid Stim Hormone (TSH) 2.34 uIU/mL (0.358-3.74); Triglycerides 100 mg/dL; Very Low Density Lipoprotein 20 mg/dL (5-40)
[2020-06-10 08:55] LABS: Testosterone Free 2.2 pg/mL (0.0-4.2)
[2020-06-15 10:49] LABS: 17-Hydroxyprogesterone 62 ng/dL (.)
== END ==
PROVIDERS: Visit Provider Obstetrics & Gynecology
DX: N92.5 Other specified irregular menstruation (principal)
CPT/HCPCS: 36415; 80061; 82627; 83001; 83002; 83036; 83498; 84146; 84402; 84439; 84443; 84702; 85027; 86900; 86901; 82626

== ENCOUNTER 2020-08-29 05:52 | Emergency (ER) | payer MEDICAID, SELFPAY ==
[2020-08-29 05:53] VITALS: BP 155/106; PULSE 112; RESP 18; TEMP 36; O2SAT 98; BMI 45.5
--- NOTE | 2020-08-29 06:01 | RAD_ITS ---
STUDY: X-RAY - RIGHT ANKLE REASON FOR EXAM: Female, 20 years old. injury TECHNIQUE: 3 view(s) of the ankle. COMPARISON: None. FINDINGS: Normal visualized distal tibia and fibula. Normal medial and lateral malleoli. Normal tibiotalar articulation and ankle mortise. Normal visualized talus and calcaneus. The visualized subtalar, talonavicular, calcaneocuboid and tarsal articulations are normal. Lateral soft tissue swelling consistent with ligamentous injury. RAD/Ankle min 3 Views IMPRESSION: No fracture or dislocation. Lateral soft tissue swelling consistent with ligamentous injury. Electronically Signed: Moshe Melgoza MD at 6:41 EDT Tel , Service support ,
--- NOTE | 2020-08-29 06:01 | ED.VIS.LOWEX ---
HPI History of Present Illness Chief Complaint: Lower Extremity Injury Informant: patient Narrative Narrative: 20-year-old female presents with right ankle injury. She states that approximately 6 days ago she was walking on a hill when the grass was wet and she slipped sustaining an inversion injury. She states she has been icing and elevating it and taking Tylenol and Motrin but it continues to be painful to ambulate so she needed to be evaluated. She denies any other injuries or concerns tonight. PFSH PFSH Home Medications NK 08/29/20 [History Last Taken Unknown] Allergy/AdvReac Type Severity Reaction Status Date / Time amoxicillin Allergy Rash Verified 08/29/20 05:54 codeine AdvReac PASSED Verified 08/29/20 05:54 OUT Surgical History History of tonsillectomy Social History (Updated 08/29/20 @ 06:[address] Chris Alegre DO) Smoking Status: Former smoker substance use type: does not use ROS ROS ED Constitutional Constitutional ED: Denies chills or weight loss Eyes Eyes: Denies change in vision or diplopia ENT ENT ED: Denies ear pain, rhinorrhea or sore throat Cardiovascular Cardiovascular: Denies chest pain, orthopnea, palpitations or racing heartbeat Respiratory/Chest Respiratory/Chest: Denies cough, dyspnea or orthopnea Gastrointestinal Gastrointestinal: Denies abdominal pain, diarrhea, nausea or vomiting Genitourinary Genitourinary ED: Denies dysuria, hematuria or urinary frequency Musculoskeletal Musculoskeletal: Reports other Details: See history of present illness ; Denies arthralgias or myalgias Integumentary Denies abscess or rash Neurologic Neurologic: Denies headache(s) or weakness Psychiatric Psychiatric: Denies anxiety, depression, suicidal ideation or suicidal thoughts Endocrine Endocrinology: Denies polydipsia, polyphagia or polyuria Allergic/Immunologic Allergic/Immunologic ED: Denies mouth swelling, tongue swelling or urticaria EXAM Physical Exam Const Vital Signs: 08/29/20 05:53 Temperature 96.8 F L Temperature Source Temporal Pulse Rate 112 H Respiratory Rate 18 Blood Pressure 155/106 H Blood Pressure Mean 122 Pulse Ox 98 Positive well nourished and well developed General Appearance ED: well developed HEENT Reports normocephalic, head/scalp atraumatic and moist mucous membranes Eyes PERRL and EOMs intact bilaterally Neck no lymphadenopathy, supple and no JVD Resp normal respiratory effort and clear to auscultation bilaterally Cardio regular rate, regular rhythm and no murmurs GI normal to inspection, nondistended, normoactive bowel sounds and non-tender Palpation: soft Back/Spine no CVA tenderness and normal ROM Extremity Extremity Narrative: Right ankle demonstrates swelling and tenderness over the lateral malleolus. There is no medial malleoli or pain. Achilles is intact on direct testing. No fifth metatarsal pain or fibular head pain. There is some mild ecchymosis noted. General Extremety ED: Yes edema General Extremity: edema Neuro oriented x3 and CN's II-XII intact bilaterally Sensorium / Orientation: alert Motor Exam: strength 5/5 throughout Psych mental status grossly normal Mood & Affect: Negative for depressed or tearful Skin no rashes or lesions noted and no wounds MDM MDM MDM Narrative Medical decision making narrative: My interpretation of the plain films of the right ankle is no acute fracture. Soft tissue swelling noted. Patient was placed in air splint. Follow-up with primary care or podiatry 10 to 14 days if not improving. Radiography Diagnostic Testing: Radiology Impression Ankle X-Ray 08/29/20 06:01 IMPRESSION: No fracture or dislocation. Lateral soft tissue swelling consistent with ligamentous injury. Electronically Signed: Moshe Melgoza MD at 6:41 EDT Tel , Service support , Discharge Plan Triage Chief Complaint: Lower Extremity Injury ED Provider: Chris Alegre Dx/Rx/DC Orders Clinical Impression: Right ankle sprain Instructions: ED Ankle Sprain (Adult) Prescriptions: No Action NK RF: 0 Primary Care Provider: Care Physician,No Primary Referrals: Quinn Cazares DPM [STAFF PHYSICIAN] - 10-14 Days if not better Care Physician,No Primary [Primary Care Provider] - Disposition Disposition: Home, self care
[2020-08-29 07:09] VITALS: PULSE 112; RESP 15; O2SAT 98
== END 2020-08-29 07:10 | disposition home or self-care (01) ==
PROVIDERS: Emergency Provider Emergency Medicine
DX: S93.401A Sprain of unspecified ligament of right ankle, initial encounter (principal); X50.1XXA Overexertion from prolonged static or awkward postures, initial encounter; Y93.01 Activity, walking, marching and hiking; Y92.9 Unspecified place or not applicable; Y99.9 Unspecified external cause status; Z87.891 Personal history of nicotine dependence
CPT/HCPCS: 73610; 99283

== ENCOUNTER 2021-10-07 14:17 | Emergency (ER) | payer MEDICAID, SELFPAY ==
[2021-10-07 14:18] VITALS: BP 108/91; PULSE 88; RESP 14; TEMP 36.6; O2SAT 99; BMI 38.2
[2021-10-07 14:41] VITALS: RESP 16
--- NOTE | 2021-10-07 14:41 | ED.VIS.BACK ---
HPI History of Present Illness Chief Complaint: Back Detail of Chief Complaint: Back pain for 3 days Informant: patient Narrative Narrative: Patient presents to the emergency department complaint of back pain at*3 days ago. Patient states that she has been moving for the last 3 days and has been lifting different objects but nothing of significant weight. 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 She complains of pain in the right lower back without any radiation down the legs or into the abdomen. She denies paresthesias in the extremities. She denies weakness in extremities. Patient denies urinary symptoms. Patient believes she recently got over a UTI and she had leftover antibiotics from prior UTI that she took and her symptoms resolved. Patient currently rates her pain a 7 out of 10. [facility] Medical History (Updated 10/07/21 @ 14:[address] Stormy Alvarado, ) COVID-19 Medical History no medical history Home Medications bupropion HCl 150 mg 24 hr tablet, extended release 150 mg PO QAM #20 tabs 02/09/21 [Rx Last Taken Unknown] hydroxyzine HCl 50 mg tablet 50 mg PO QHS #20 tabs 02/09/21 [Rx Last Taken Unknown] guaifenesin 1,200 mg tablet, extended release 12 hr 1,200 mg PO BID PRN congestion #14 tabs 09/09/21 [Rx Last Taken Unknown] loratadine 10 mg tablet (Claritin) 10 mg PO DAILY PRN allergic symptoms #14 tabs 09/09/21 [Rx Last Taken Unknown] cyclobenzaprine 10 mg tablet 10 mg PO TID PRN Muscle Spasm #20 TABLETS 10/07/21 [Rx Last Taken Unknown] hydrocodone-acetaminophen 5-325mg 5mg-325mg 1 tab PO Q4H PRN PRN Pain 2 days #10 TABLETS 10/07/21 [Rx Last Taken Unknown] naproxen 500 mg tablet 500 mg PO BID #14 tabs 10/07/21 [Rx Last Taken Unknown] Allergy/AdvReac Type Severity Reaction Status Date / Time amoxicillin Allergy Rash Verified 10/07/21 14:20 codeine AdvReac PASSED Verified 10/07/21 14:20 OUT Family History (Updated 01/26/21 @ 11:15 by Heide Vo AD OPERATIONS COORDINATOR, AD OPERATIONS COORDINATOR-C) Mother Anxiety and depression Lupus Father Anxiety and depression Diabetes Type II Schizophrenia Paranoia Grandmother Colon cancer Diabetes Type II Hypertension Family History no significant family his Surgical History (Updated 01/26/21 @ 11:11 by Heide Vo NP, AD OPERATIONS COORDINATOR-C) History of tonsillectomy Surgical History no surgical history Social History (Updated 01/26/21 @ 11:16 by Heide Vo NP, AD OPERATIONS COORDINATOR-C) household members: significant other and children current occupational status: employed sexually active: Yes Smoking Status: Former smoker alcohol intake: never substance use type: does not use what type of physical activity do you participate in: additional details: Cardio frequency: 5-6 times per week duration: 30-45 minutes/day ROS ROS ED Review of Systems ROS Unobtainable: other Constitutional Constitutional ED: Reports lethargy; Denies chills, fever(s), sweats or weight loss Eyes Eyes: Denies blurry vision, change in vision or diplopia ENT ENT ED: Denies rhinorrhea or sore throat Cardiovascular Cardiovascular: Reports chest pain and racing heartbeat; Denies orthopnea Respiratory/Chest Respiratory/Chest: Reports dyspnea and dyspnea on exertion; Denies cough, orthopnea or sputum Gastrointestinal Gastrointestinal: Denies abdominal pain, diarrhea, nausea or vomiting Genitourinary Genitourinary ED: Denies dysuria, hematuria or urinary frequency Musculoskeletal Musculoskeletal: Reports back pain; Denies arthralgias, myalgias or neck pain Integumentary Denies abscess, Abrasions or rash Neurologic Neurologic: Denies headache(s) or weakness Psychiatric Psychiatric: Denies anxiety, depression or suicidal thoughts Endocrine Endocrinology: Denies polydipsia, polyphagia or polyuria Hematologic/Lymphatic Hematologic/Lymphatic: Denies easy bleeding, easy bruising or lymphadenopathy Allergic/Immunologic Allergic/Immunologic ED: Denies mouth swelling, tongue swelling or urticaria EXAM Physical Exam Const Vital Signs: 10/07/21 14:18 Temperature 97.9 F Temperature Source Temporal Pulse Rate 88 Respiratory Rate 14 Blood Pressure 108/91 H Blood Pressure Mean 96 Pulse Ox 99 Oxygen Delivery Method Room Air Positive well nourished and well developed General Appearance ED: well developed and NAD HEENT Reports TM's clear and moist mucous membranes normocephalic and atraumatic; Negative for trauma or tenderness Tympanic Membrane ED: Yes TM's clear Eyes PERRL and EOMs intact bilaterally General Eye ED: Negative for pale conjunctiva or scleral icterus Neck no lymphadenopathy, supple and no JVD General: Negative for tenderness Chest Wall inspection of chest normal and palpation of chest normal Chest: Negative for tenderness Resp normal respiratory effort and clear to auscultation bilaterally Effort and Inspection: Negative for respiratory distress or pain with movement Auscultation: Negative for rhonchi, wheezes or diminished lung sounds Cardio regular rate, regular rhythm, S1 normal heart sound, S2 normal heart sound and no murmurs Peripheral Pulses: pulses 2+ throughout GI normal to inspection, nondistended, normoactive bowel sounds, soft to palpation, non-tender, non-distended and no masses Back/Spine no CVA tenderness and no thoracic nor lumbar tenderness Back/Spine Narrative: Patient has tenderness palpation over the right lumbar paraspinal musculature that reproduces her pain. Her pain is positional with certain movements. She has negative straight leg raises. Deep tendon reflexes are plus 2 out of 4 bilaterally at the patella and Achilles. Patient has normal L5 extension bilaterally. Patient has normal sensation to light touch. Extremity normal to inspection General Extremety ED: Negative for edema General Extremity: Negative for edema Neuro oriented x3, CN's II-XII intact bilaterally, no sensory deficits noted and gait normal Sensorium / Orientation: awake, alert, oriented to person, oriented to place and oriented to time Motor Exam: strength 5/5 throughout and strength abnormal Psych mental status grossly normal Skin no rashes or lesions noted and no wounds MDM MDM MDM Narrative Medical decision making narrative: I feel patient has muscular pain. She will be given a prescription for Naprosyn, Flexeril, and a few [place] for pain. She is advised to follow-up with primary care physician corporate relations director for no doc within next 3 to 5 days. Patient has no signs or symptoms of cauda equina or red flag symptoms. I do not feel imaging is indicated as she has had no trauma and she has no bony tenderness on exam. Discharge Plan Triage Chief Complaint: Back ED Provider: Stormy Alvarado Dx/Rx/DC Orders Clinical Impression: Back pain Instructions: ED Back Spasm, No Trauma Prescriptions: New cyclobenzaprine [cyclobenzaprine] 10 mg tablet 10 mg PO TID PRN (Reason: Muscle Spasm) Qty: 20 0RF hydrocodone-acetaminophen [hydrocodone-acetaminophen] 5-325 mg tablet 1 tab PO Q4H PRN PRN (Reason: Pain) 2 Days Qty: 10 0RF naproxen 500 mg tablet 500 mg PO BID Qty: 14 0RF No Action hydroxyzine HCl 50 mg tablet 50 mg PO QHS Qty: 20 0RF bupropion HCl 150 mg tablet extended release 24 hr 150 mg PO QAM Qty: 20 0RF loratadine [Claritin] 10 mg tablet 10 mg PO DAILY PRN (Reason: allergic symptoms) Qty: 14 0RF guaifenesin 1,200 mg tablet extended release 12hr 1,200 mg PO BID PRN (Reason: congestion) Qty: 14 0RF Primary Care Provider: Richelle Desai Referrals: Richelle Desai MD [Primary Care Provider] - 3-5 Days Disposition Disposition: Home, Self Care
== END 2021-10-07 14:52 | disposition home or self-care (01) ==
LOC: ED 14:49
PROVIDERS: Emergency Provider Emergency Medicine; Visit Provider Emergency Medicine
DX: M54.50 Low back pain, unspecified (principal); Z87.891 Personal history of nicotine dependence
CPT/HCPCS: 99282

== ENCOUNTER 2021-11-10 14:47 | Emergency (ER) | payer MEDICAID, SELFPAY ==
[2021-11-10 14:48] VITALS: BP 132/94; PULSE 112; RESP 16; TEMP 36.1; O2SAT 96; BMI 38.2
--- NOTE | 2021-11-10 15:05 | EDS_ITS ---
HPI History of Present Illness HPI Narrative: Patient presents with right knee pain that began 5 days ago. Patient noticed a bruise over the anterior and lateral aspect of her right knee. Patient does not remember any specific trauma. Patient describes the pain as sharp and throbbing. Patient states her pain is worse with flexion of the knee. Patient denies any paresthesias or weakness. Patient denies any swelling. Patient also states her pain is worse with ambulation. Chief Complaint: Lower Extremity Injury Informant: patient Onset/Context/Timing Onset: Days (5) Context: Gradual Onset Quality of Pain: Sharp and Throbbing Location: Right knee Worsened by: Flexion, ambulation Relieved by: Nothing Associated Symptoms Associated Symptoms: Negative for Parasthesia, Weakness or Loss of Funtion [facility] Medical History COVID-19 Home Medications bupropion HCl 150 mg 24 hr tablet, extended release 150 mg PO QAM #20 tabs 02/09/21 [Rx Last Taken Unknown] hydroxyzine HCl 50 mg tablet 50 mg PO QHS #20 tabs 02/09/21 [Rx Last Taken Unknown] guaifenesin 1,200 mg tablet, extended release 12 hr 1,200 mg PO BID PRN congestion #14 tabs 09/09/21 [Rx Last Taken Unknown] loratadine 10 mg tablet (Claritin) 10 mg PO DAILY PRN allergic symptoms #14 tabs 09/09/21 [Rx Last Taken Unknown] cyclobenzaprine 10 mg tablet 10 mg PO TID PRN Muscle Spasm #20 TABLETS 10/07/21 [Rx Last Taken Unknown] hydrocodone-acetaminophen 5-325mg 5mg-325mg 1 tab PO Q4H PRN PRN Pain 2 days #10 TABLETS 10/07/21 [Rx Last Taken Unknown] naproxen 500 mg tablet 500 mg PO BID #14 tabs 10/07/21 [Rx Last Taken Unknown] Allergy/AdvReac Type Severity Reaction Status Date / Time amoxicillin Allergy Rash Verified 11/10/21 14:47 codeine AdvReac PASSED Verified 11/10/21 14:47 OUT Family History (Updated 01/26/21 @ 11:15 by Heide Vo ANSWERING SERVICE TELEPHONE OPERATOR, ANSWERING SERVICE TELEPHONE OPERATOR-C) Mother Anxiety and depression Lupus Father Anxiety and depression Diabetes Type II Schizophrenia Paranoia Grandmother Colon cancer Diabetes Type II Hypertension Surgical History History of tonsillectomy Social History household members: significant other and children current occupational status: employed sexually active: Yes Smoking Status: Former smoker alcohol intake: never substance use type: does not use what type of physical activity do you participate in: additional details: Cardio frequency: 5-6 times per week duration: 30-45 minutes/day ROS ROS ED Constitutional Constitutional ED: Denies chills or fever(s) Eyes Eyes: Denies blurry vision or change in vision ENT ENT ED: Denies rhinorrhea or sore throat Cardiovascular Cardiovascular: Denies chest pain or palpitations Respiratory/Chest Respiratory/Chest: Denies cough or dyspnea Gastrointestinal Gastrointestinal: Denies nausea or vomiting Genitourinary Genitourinary ED: Denies dysuria or hematuria Musculoskeletal Musculoskeletal: Denies back pain or neck pain Integumentary Denies abscess or rash Neurologic Neurologic: Reports headache(s); Denies weakness Allergic/Immunologic Allergic/Immunologic ED: Denies mouth swelling or urticaria EXAM Physical Exam Const Vital Signs: 11/10/21 14:48 Temperature 96.9 F L Temperature Source Temporal Pulse Rate 112 H Respiratory Rate 16 Blood Pressure 132/94 H Blood Pressure Mean 106 Pulse Ox 96 Oxygen Delivery Method Room Air Positive well nourished, well developed and obese General Appearance ED: well developed and NAD Nutritional Appearance: obese HEENT Reports moist mucous membranes Neck full ROM Extremity Extremity Narrative: There is tenderness over the anterior lateral aspect of the right knee. There is also some mild tenderness along the medial joint line. There is no effusion. There is no bony crepitance or step-off. Range of motion was limited in flexion of the knee past 30 degrees. Extensor mechanism is intact. There is no laxity appreciated. There is no deformity noted. Pedal pulses are equal bilaterally. Sensation was intact to light touch bilaterally in the lower extremities. Neuro oriented x3, CN's II-XII intact bilaterally, moves all extremities and no sensory deficits noted Sensorium / Orientation: alert Motor Exam: strength 5/5 throughout Psych mental status grossly normal MDM MDM MDM Narrative Medical decision making narrative: X-rays of the right knee were obtained. There are 4 views. On my interpretation, there is no acute fracture. There is no dislocation. There are some mild degenerative changes. There is no soft tissue swelling. Radiologist also interpreted the x-rays and agrees. Patient was advised of her findings. Patient was instructed to ice and elevate the right knee. Patient was instructed to take Tylenol and ibuprofen as needed for pain. Patient was given referral for primary care physician. Patient was instructed to follow-up in 5 to 7 days. Patient understood and was agreeable with the plan. All questions were answered. Radiography Diagnostic Testing: Clinical Impression(s) from Imaging Studies Knee X-Ray 11/10/21 15:19 IMPRESSION: Degenerative changes, no evidence of acute osseous or nodularity is seen Electronically Signed: Jorgito Georges MD at 15:37 EDT , Discharge Plan Triage Chief Complaint: Lower Extremity Injury ED Provider: Jose E Luu Dx/Rx/DC Orders Clinical Impression: Contusion of right knee, initial encounter, Obesity (BMI 30-39.9) Instructions: ED Contusion, Lower Extremity Prescriptions: No Action hydroxyzine HCl 50 mg tablet 50 mg PO QHS Qty: 20 0RF bupropion HCl 150 mg tablet extended release 24 hr 150 mg PO QAM Qty: 20 0RF loratadine [Claritin] 10 mg tablet 10 mg PO DAILY PRN (Reason: allergic symptoms) Qty: 14 0RF guaifenesin 1,200 mg tablet extended release 12hr 1,200 mg PO BID PRN (Reason: congestion) Qty: 14 0RF cyclobenzaprine [cyclobenzaprine] 10 mg tablet 10 mg PO TID PRN (Reason: Muscle Spasm) Qty: 20 0RF hydrocodone-acetaminophen [hydrocodone-acetaminophen] 5-325 mg tablet 1 tab PO Q4H PRN PRN (Reason: Pain) 2 Days Qty: 10 0RF naproxen 500 mg tablet 500 mg PO BID Qty: 14 0RF Primary Care Provider: Care Physician,No Primary Referrals: Cynthia Casiano MD [Med Staff - Auto Air Conditioning Apprentice] - 5-7 Days Care Physician,No Primary [Primary Care Provider] - Disposition Disposition: Home, Self Care
--- NOTE | 2021-11-10 15:19 | RAD_ITS ---
INDICATION: Injury/Pain EXAMINATION/TECHNIQUE: X-RAY - RIGHT XR Knee Complete 4 Views or More 4 VIEWS COMPARISON: None. FINDINGS: SOFT TISSUES: No soft tissue swelling or gas. No radiopaque foreign body. BONES/JOINTS: No acute fracture or subluxation.. Normal alignment. Degenerative changes. No sclerotic or destructive changes observed. RAD/Knee 4 or More Views IMPRESSION: Degenerative changes, no evidence of acute osseous or nodularity is seen Electronically Signed: Jorgito Georges MD at 15:37 EDT ,
[2021-11-10] MEDS: Ibuprofen 600 MG Tablet PO (15:28)
== END 2021-11-10 16:05 | disposition home or self-care (01) ==
PROVIDERS: Emergency Provider Emergency Medicine; Visit Provider Emergency Medicine
DX: S80.01XA Contusion of right knee, initial encounter (principal); X58.XXXA Exposure to other specified factors, initial encounter; E66.9 Obesity, unspecified; Z87.891 Personal history of nicotine dependence
CPT/HCPCS: 73564; 99282

== ENCOUNTER 2021-11-15 20:18 | Emergency (ER) | payer MEDICAID, SELFPAY ==
[2021-11-15 20:19] VITALS: BP 148/90; PULSE 104; RESP 18; TEMP 36.2; O2SAT 100; BMI 38.2
--- NOTE | 2021-11-15 20:58 | EX.ED.DYSGE1 ---
HPI History of Present Illness Chief Complaint: General Illness Informant: patient Narrative Narrative: Patient is concerned about COVID. She has some mild muscle aches. She has some mild nausea but no abdominal pain vomiting or diarrhea. She states maybe her bowel movement was a little soft. No dysuria. No documented fever. No cough. No congestion sore throat or runny nose. She has been exposed to a couple people with COVID though. PFSH PFS Medical History Anxiety COVID-19 Depression Home Medications NK 11/15/21 [History Last Taken Unknown] Allergy/AdvReac Type Severity Reaction Status Date / Time amoxicillin Allergy Rash Verified 11/15/21 20:21 codeine AdvReac PASSED Verified 11/15/21 20:21 OUT Family History Mother Anxiety and depression Lupus Father Anxiety and depression Diabetes Type II Schizophrenia Paranoia Grandmother Colon cancer Diabetes Type II Hypertension Surgical History History of placement of ear tubes History of tonsillectomy and adenoidectomy Social History household members: significant other and children current occupational status: employed sexually active: Yes Smoking Status: Former smoker alcohol intake: never substance use type: does not use what type of physical activity do you participate in: additional details: Cardio frequency: 5-6 times per week duration: 30-45 minutes/day ROS ROS ED Constitutional Constitutional ED: Denies fever(s) Eyes Eyes: Denies blurry vision ENT ENT ED: Denies rhinorrhea or sore throat Cardiovascular Cardiovascular: Denies chest pain or palpitations Respiratory/Chest Respiratory/Chest: Denies cough or dyspnea Gastrointestinal Gastrointestinal: Reports nausea; Denies abdominal pain or vomiting Genitourinary Genitourinary ED: Denies dysuria or hematuria Musculoskeletal Musculoskeletal: Reports myalgias Integumentary Denies rash Neurologic Neurologic: Denies headache(s) or paresthesias Psychiatric Psychiatric: Reports anxiety Endocrine Endocrinology: Denies polydipsia or polyuria Hematologic/Lymphatic Hematologic/Lymphatic: Denies anemia Allergic/Immunologic Allergic/Immunologic ED: Denies urticaria EXAM Physical Exam Const Vital Signs: 11/15/21 20:19 11/15/21 20:33 Temperature 97.2 F L Temperature Source Temporal Pulse Rate 104 H Respiratory Rate 18 Respiratory Effort Normal Respiratory Pattern Normal Blood Pressure 148/90 H Blood Pressure Mean 109 Pulse Ox 100 Oxygen Delivery Method Room Air Positive well nourished and well developed General Appearance ED: well developed and NAD HEENT Reports moist mucous membranes HEENT Narrative: No exudate. No sinus tenderness. Eyes PERRL and EOMs intact bilaterally Neck supple and no JVD Resp normal respiratory effort Auscultation: Negative for rales, rhonchi or wheezes Cardio regular rate and regular rhythm GI normal to inspection, nondistended, normoactive bowel sounds and non-tender GI Narrative: Bowel sounds are normal. Palpation: soft Back/Spine no CVA tenderness Extremity normal to inspection Neuro Sensorium / Orientation: alert Psych mental status grossly normal Skin no rashes or lesions noted MDM MDM MDM Narrative Medical decision making narrative: Patient does have exposure to COVID. She has symptoms that could be consistent. We discussed options with the patient. She would like to know for sure if she does or does not have COVID. I explained that a PCR is a better test but I will get that back tonight. She is fine with that. We will send this off and patient will go home. As she does not have long-term chronic illness I do not think she requires Paxlovid. Discharge Plan Triage Chief Complaint: General Illness ED Provider: Girish Avila Dx/Rx/DC Orders Clinical Impression: Exposure to 2019-nCoV, Myalgia Instructions: Coronavirus Disease 2019 (COVID-19): Caring for Yourself or Others, ED Myalgias Prescriptions: No Action NK Primary Care Provider: Care Physician,No Primary Referrals: Bharati Carballo MD [Med Staff - Vending Machine Coin Collector] - 3-5 Days if not improving Care Physician,No Primary [Primary Care Provider] - Disposition Disposition: Home, Self Care
[2021-11-15 21:20] VITALS: BP 132/82; PULSE 101; RESP 15; TEMP 37.9; O2SAT 100
== END 2021-11-15 21:31 | disposition home or self-care (01) ==
PROVIDERS: Emergency Provider Emergency Medicine; Visit Provider Emergency Medicine
DX: M79.10 Myalgia, unspecified site (principal); R11.0 Nausea; Z20.822 Contact with and (suspected) exposure to COVID-19; Z87.891 Personal history of nicotine dependence
CPT/HCPCS: 87635; 99282; U0003; U0005

== ENCOUNTER 2022-01-28 09:30 | Outpatient (RCR) | payer MEDICAID, SELFPAY ==
--- NOTE | 2022-01-18 12:55 | HP.PTEVAL_ITS ---
Patient's Visit Information YOLANDA QUINONEZ is a 21 year old F referred to Physical Therapy by Dr. Hadley Roque DO with a diagnosis of LUMBAR SPONDYLOSIS W/OUT MYELOPATHY OR RADICULOPATHY.. Date of Evaluation: 01/18/22 Physical Therapist: Trini Pressley, PT, Cert MDT - Visit Plan Frequency: 2-3x /Week Duration: 4-6 Weeks Plan: *CHECK AUTH: RECORD # OF VISITS APPROVED AND EXPIRATION DATE. CHECK CODES APPROVED WITH POC*. *NO BACK EXTENSION* AVOID INCREASED PAIN WITH EX ROM AND INTENSITY. POSTURE CORRECTION/STRENGTHENING, INSTRUCTION IN APPROPRIATE BODY MECHANICS AND ACTIVITY MODIFICATIONS. DLS STARTING WITH A NEUTRAL SPINE PROGRESSING ROM TOLERATED EXCEPT NO BACK EXTENSION. ANDRIA LE ROM, STRETCHING AND STRENGTHENING. HEP INSTRUCTION. 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 FULL DUTY. P resent symptoms: ANDRIA LOW BACK PAIN. PATIENT DENIES ANDRIA LE SX'S. Present since: ABOUT A YEAR. Pain Scale: WORST 8/10, LEAST 6/10. Currently: 6/10. Is it getting better, worse or staying the same: STAYING THE SAME. Commenced as a result of: NO APPARENT REASON. Symptoms at onset: SAME. Worse: SITTING FOR TOO LONG, STANDING TO DO DISHES, LAYING DOWN, TWISTING. (DENIES PAIN WITH BENDING AND LIFTING). Better: NOTHING EXCEPT TEMPORARY RELIEF WITH HEATING PAD. Disturbed sleep: YES. Previous history/Previous treatment: NO BACK SURGERY. NO BACK YASH'S. NO PT. CHIROPRACTOR X 3 VISITS DURING THE SUMMER WITHOUT BENEFIT. Treatment this episode: CONSULT DR. ROQUE X 1. Coughing/sneezing/straining: NEGATIVE. Gait: NORMAL SHORT DISTANCES BUT INCREASED BACK PAIN WITH PROLONGED WALKING ABOUT AN HOUR OR LESS. Bowel or Bladder Dysfunction: NO. Accidents: NO. Unexplained weight loss: NO. Imaging: RECENT LUMBAR X-RAY: STUDY: X-RAY - LUMBAR SPINE. REASON FOR EXAM: Female, 21 years old. Pain in lower back for one year. TECHNIQUE: view(s) of the lumbar spine were obtained. COMPARISON: None. . FINDINGS: Normal lumbar lordosis. There is no substantial scoliosis. There is a. normal alignment of the vertebrae. Normal vertebral bodies and endplates. Normal disc space heights. There. is no evidence of acute fracture or loss of vertebral axial height. The soft tissue structures are unremarkable. . RAD/Lumbar Spine 2 or 3 Views. IMPRESSION: Normal x-ray exam ination of the lumbar spine. . Electronically Signed: James Byrne DO. at 17:21 EDT. Reading Location ID and State: [id number] / [place]. PMH/Recent major surgery: UNREMARKABLE. - Objective Sitting/Standing Posture: NORMAL LORDOSIS. NO RELEVENT LATERAL SHIFT. POOR POSTURE CONTROL IN SITTING BUT ABLE TO CORRECT BUT NOT MAINTAIN. Active Correction of posture: PRODUCES MID BACK PAIN IN STANDING AND DECREASES PAIN IN SITTING. Other Observations: INDEP GAIT AND TRANSFERS. INDEP SIT TO STAND WITHOUT UE ASSIST. Sensory deficit: ADNRIA LE LIGHT TOUCH SENSATION GROSSLY INTACT AND SYMMETRICAL. ROM deficit: ANDRIA LE'S WFL. Motor deficit: ANDRIA LE'S GROSSLY 5/5 WITH MMT'ING. Dural Signs: NEGATIVE ANDRIA LE'S. Lumbar mvmt loss: flex - NIL. ext - MIN - INCREASES CENTRAL LBP. R SG - NIL. L SG - NIL. Core strength: POOR. Palpation: LUMBAR TENDERNESS. TREATMENT: NEUROMUSCULAR REEDUCATION - RETRAINING OF MVMT AND POSTURE FOR SITTING, LYING AND STANDING ACTIVITIES. - Balance/Special Test Scores Oswestry Low Back Score: 19 - Goals Goal 1:: DECREASE C/O LBP Goal Time Frame: 4-6 Weeks Goal 2:: IMPROVE PERSONAL CARE, LIFTING, WALKING, SITTING, STANDING, SLEEP, SOCIAL LIFE, TRAVEL AND WORK/HOMEMAKING FUNCTION. Goal Time Frame: 4-6 Weeks Goal 3:: INSTRUCT IN PROPHYLAXIS Goal Time Frame: 4-6 Weeks - Anticipated Interventions Patient/Client Instruction: Educate patient on: Condition, Plan of Care, Risk Factors For the Purpose of:: To improve self management Therapeutic Exercise to Include: Strength training, Body mechanics, Postural training, Neuromotor development, In an aquatic setting, Dynamic Lumbar Stabilization For the Purpose of:: To decrease pain, To improve muscle performance and motor function, To increase tolerance to activity/condition/position, To improve ability of physical actions for home/community/work/leisure Thank you for the opportunity to evaluate your patient. For Medicare and Medicare HMO plans, please review the plan of care and approve it. It will need to be FAXED BACK to us at [phone] for Medicare purposes. For Medicare only, by signing this I certify the plan of care. Please let me know if there are questions or concerns regarding this plan of care. Physician Signature: Date:
--- NOTE | 2022-02-14 18:20 | HP.PT.NRP ---
YOLANDA QUINONEZ was seen in my office for initial evaluation on 01/18/22. The following Plan of Care was established for this patient: Initial Frequency: 2-3x /Week Initial Duration: 4-6 Weeks Patient/Client Instruction: Educate patient on: Condition, Plan of Care, Risk Factors For the Purpose of:: To improve self management Therapeutic Exercise to Include: Strength training, Body mechanics, Postural training, Neuromotor development, In an aquatic setting, Dynamic Lumbar Stabilization For the Purpose of:: To decrease pain, To improve muscle performance and motor function, To increase tolerance to activity/condition/position, To improve ability of physical actions for home/community/work/leisure This patient was last seen in our office . Pertinent comments regarding their Physical therapy will appear below: 02/10/22 patient failed to show for PT nicolasa't second time in a row. Staff member called and Patient reported she had been in long-term that is why she missed her appts. Pt requested to be d/c from PT and wants taken off the schedule as she no longer needs PT services. Patient was seen for initial evaluation and one follow up before she stopped attending her scheduled nicolasa'ts. At this point I will be discontinuing this patient from physical therapy. I would be happy to see this patient again in the future if found appropriate by the physician. Thank you! Trini Pressley, PT, Cert MDT Balance/Gait/Functional tests - Balance/Special Test Scores Oswestry Low Back Score: 19
== END 2022-01-28 19:00 | disposition home or self-care (01) ==
LOC: PT 09:30
PROVIDERS: Referring Provider Orthopaedic Surgery; Visit Provider Orthopaedic Surgery
DX: M47.816 Spondylosis without myelopathy or radiculopathy, lumbar region (principal)
CPT/HCPCS: 97110; 97161

== ENCOUNTER 2022-06-01 02:02 | Emergency (ER) | payer MEDICAID, SELFPAY ==
[2022-06-01 02:02] VITALS: BP 151/77; PULSE 85; RESP 18; TEMP 36.4; O2SAT 99; BMI 41.7
[2022-06-01 03:02] LABS: Absolute Lymphocyte Count 1.43 X10^3/uL (0.83-4.51); Absolute Neutrophil Count 8.7 X10^3/uL (2.0-7.7); Basophil# 0.04 X10^3/uL; Basophil% 0.4 % (0-1); Eosinophil# 0.05 X10^3/uL; Eosinophils% 0.5 % (0-5); Hematocrit 43.9 % (37-47); Hemoglobin 15.1 g/dL (12.0-15.0); Lymphocyte # 1.43 X10^3/ul (0.83-4.51); Lymphocyte % 12.9 % (19-41); Mean Corp Hgb Conc 34.4 g/dL (32-36); Mean Corpuscular Hgb 32.2 pg (27.0-32.0); Mean Corpuscular Volume 93.6 fL (81-99); Mean Platelet Vol. 9.9 fl (6.2-12.0); Monocyte# 0.79 X10^3/uL; Monocyte% 7.1 % (0-10); NRBC Flagged by Analyzer 0 % (0-5); Neutrophil # 8.71 X10^3/uL (2.7-7.7); Neutrophil % 78.6 % (47-70); Platelet Count 258 K/mm3 (150-450); RBC Distribution Width CV 12.3 % (11.6-14.6); RBC Distribution Width SD 42.3 fl (35.1-43.9); Red Blood Count 4.69 M/mm3 (4.2-5.4); White Blood Count 11.1 K/mm3 (4.4-11.0)
[2022-06-01] MEDS: Haloperidol Lactate 5 MG/ML Vial IV (03:14)
[2022-06-01] MEDS: 0.9% Normal Saline 1,000 ML 999 ML IV (03:14)
[2022-06-01 03:17] LABS: Internal QC Validated? YES +Cl - CLEAR BKGD; Pregnancy, Serum, hCG Quali. NEGATIVE Negative
[2022-06-01 03:22] LABS: Anion Gap 8 (5-15); BUN 9 mg/dL (7-18); BUN/Creat Ratio 12.9 RATIO (10-20); Chloride 106 mmol/L (98-107); EST Glomerular Filtration Rate 111 mL/min (>60); Est Glom Filt Rate - Afr Amer 134 mL/min (>60); Estimated Creatinine Clearance 113.43 ml/min; Glucose 112 mg/dL (74-106); Potassium 3.9 mmol/L (3.5-5.1); Sodium Level 138 mmol/L (136-145)
[2022-06-01] MEDS: DiphenhydrAMINE 50 MG/ML Syringe 25 MG IV (03:26)
--- NOTE | 2022-06-01 06:15 | EX.ED.DYSGE1 ---
HPI History of Present Illness Chief Complaint: Nausea/Vomiting Informant: patient and parent Narrative Narrative: Patient is a 21-year-old female with past medical history of anxiety and agoraphobia. She states this evening she did a edible THC gummy and following this ingestion began having bouts of nausea and vomiting and according to mother not acting right. Secondary to this patient was brought to the hospital for evaluation. Upon arrival the patient is agitated but is awake and alert. She states she took a gummy simply to get high and not an attempt to hurt herself. She also denies any other ingestion associated with this. However secondary to her symptoms after taking the THC she was brought in for further care [facility] Medical History (Updated 06/01/22 @ 06:[address] Mike Krueger DO) Acute maxillary sinusitis, unspecified Anxiety COVID-19 Depression Home Medications azithromycin 250 mg tablet 250 mg PO QDAY #12 tabs 03/10/22 [Rx Last Taken Unknown] Allergy/AdvReac Type Severity Reaction Status Date / Time amoxicillin Allergy Rash Verified 06/01/22 02:06 codeine AdvReac PASSED Verified 06/01/22 02:06 OUT Family History Mother Anxiety and depression Lupus Father Anxiety and depression Diabetes Type II Schizophrenia Paranoia Grandmother Colon cancer Diabetes Type II Hypertension Surgical History History of placement of ear tubes History of tonsillectomy and adenoidectomy Social History household members: significant other and children current occupational status: employed sexually active: Yes Smoking Status: Current every day smoker tobacco type: cigarettes alcohol intake: never substance use type: does not use what type of physical activity do you participate in: additional details: Cardio frequency: 5-6 times per week duration: 30-45 minutes/day ROS ROS ED Constitutional Constitutional ED: Denies chills or fever(s) Eyes Eyes: Denies change in vision ENT ENT ED: Denies sore throat Cardiovascular Cardiovascular: Denies chest pain Respiratory/Chest Respiratory/Chest: Denies cough or dyspnea Gastrointestinal Gastrointestinal: Reports nausea and vomiting; Denies abdominal pain or diarrhea Genitourinary Genitourinary ED: Denies dysuria Musculoskeletal Musculoskeletal: Reports myalgias Integumentary Denies rash Neurologic Neurologic: Denies headache(s) Psychiatric Psychiatric: Reports anxiety; Denies suicidal ideation or suicidal thoughts Hematologic/Lymphatic Hematologic/Lymphatic: Denies easy bleeding or easy bruising EXAM Physical Exam Const Vital Signs: 06/01/22 02:02 06/01/22 06:20 Temperature 97.5 F L Temperature Source Temporal Pulse Rate 85 Respiratory Rate 18 Blood Pressure 151/77 H Blood Pressure Mean 101 Pulse Ox 99 100 Oxygen Delivery Method Room Air Room Air Positive well nourished and well developed General Appearance ED: well developed HEENT Reports moist mucous membranes HEENT Narrative: No tongue or lip swelling no oral lesions no airway edema or compromise. No secondary changes to the throat to suggest infection Eyes PERRL and EOMs intact bilaterally Neck supple Neck Narrative: No nuchal rigidity or meningeal signs present Resp normal respiratory effort and clear to auscultation bilaterally Cardio regular rate and regular rhythm GI non-tender and non-distended GI Narrative: Abdomen is soft nontender and nondistended with hyperactive bowel sounds no voluntary guarding or rigidity or pulsatile mass Palpation: soft Extremity normal to inspection Neuro oriented x3 and CN's II-XII intact bilaterally Sensorium / Orientation: alert Psych Psych Narrative: Patient has a nervous/anxious affect without homicidal or suicidal ideation Skin no rashes or lesions noted MDM MDM MDM Narrative Medical decision making narrative: Patient presented to the ER slightly hypertensive but otherwise with stable vitals. He also has a soft nonsurgical abdomen so I felt no need for emergent imaging study. She reported that all the symptoms began after the ingestion of the THC gummy and she is unsure what milligram dosage this was. Based on her history and physical exam and symptoms I do feel this is most likely inadvertent THC overdose. She will be hydrated and given symptomatic care and basic blood will be checked to look for possible electrolyte derangements or acute kidney injury associated with the nausea and vomiting. Labs revealed no clinically significant findings and after hydration and treatment with Haldol and Benadryl patient had resolution of symptoms. Therefore at this time with resolution of symptoms and negative work-up and no need for psychiatric admission as she is not homicidal or suicidal she is otherwise safe for discharge History & Record Review Discussion w/independent historian: Patient and Family Lab Data Attestation: I reviewed the patient's lab results. Labs: Laboratory Results - last 24 hr 06/01/22 06/01/22 06/01/22 03:00 03:00 03:00 WBC 11.1 H RBC 4.69 Hgb 15.1 H Hct 43.9 MCV 93.6 MCH 32.2 H MCHC 34.4 RDW Std Deviation 42.3 RDW Coeff of Sherry 12.3 Plt Count 258 MPV 9.9 Immature Gran % (Auto) 0.500 Neut % (Auto) 78.6 H Lymph % (Auto) 12.9 L [place] % (Auto) 7.1 Eos % (Auto) 0.5 Baso % (Auto) 0.4 Absolute Neuts (auto) 8.7 H Absolute Lymphs (auto) 1.43 Nucleated RBC % 0 Sodium 138 Potassium 3.9 Chloride 106 Carbon Dioxide 24.0 Anion Gap 8 BUN 9 Creatinine 0.70 Estim Creat Clear Calc 113.43 Est GFR (MDRD) Af Amer 134 Est GFR (MDRD) Non-Af 111 BUN/Creatinine Ratio 12.9 Glucose 112 H Calcium 9.0 Serum , Qual NEGATIVE Discharge Plan Triage Chief Complaint: Nausea/Vomiting ED Provider: Mike Krueger Dx/Rx/DC Orders Clinical Impression: Nausea & vomiting, Accidental marijuana overdose Instructions: ED Accidental Ingestion ..., ED Vomiting (Adult) Prescriptions: No Action azithromycin 250 mg tablet 250 mg PO QDAY Qty: 12 0RF Rx Instructions: 2 tablets today, then 1 tablet daily on days 2 through 11 Primary Care Provider: Care Physician,No Primary Referrals: Care Physician,No Primary [Primary Care Provider] - Disposition Disposition: Home, Self Care Discharge Date/Time: 06/01/22 06:20
[2022-06-01 06:20] VITALS: O2SAT 100
== END 2022-06-01 06:20 | disposition home or self-care (01) ==
PROVIDERS: Emergency Provider Emergency Medicine; Visit Provider Emergency Medicine
DX: T40.711A Poisoning by cannabis, accidental (unintentional), initial encounter (principal); R11.2 Nausea with vomiting, unspecified; F41.9 Anxiety disorder, unspecified
CPT/HCPCS: 80048; 84703; 85025; 96361; 96374; 96375; 99285; A4216

== ENCOUNTER 2022-11-14 10:30 | Outpatient (RCR) | payer MEDICAID, SELFPAY ==
--- NOTE | 2022-09-13 10:50 | HP.PTEVAL_ITS ---
Patient's Visit Information YOLANDA QUINONEZ is a 22 year old F referred to Physical Therapy by DAYDAY Hernandez with a diagnosis of Chronic LBP without sciatica. Date of Evaluation: 09/13/22 Physical Therapist: VEGA Benedict - Visit Plan Frequency: 2x /Week Duration: 2 Months Plan: 2X/ week for 8 weeks for neutral spine core stability, LE strength, postural exercises, with HEP - Subjective Pt has had back pain for over a year now. 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 Now she does not have to lift too much. Her back pain is constant. Standing for 20 and doing the dishes she will start to have back pain. Standing makes it worse. She can walk for a mile or so and then her back will start to hurt. She can sit for less than an hour and then her back will hurt. She really wants to work on her posture. She does not sleep well because of pain. She has no leg pain or leg weakness. She has no pain going up and down steps. She has been getting tingling in the L ankle/foot. - Pain back pain Pain Intensity (Out of 10): 5 Pain Intensity Range: 8 - Objective Gait: Walks with normal gait pattern with increase B hip drop. Pt is able to walk on heels and toes. LE MMT: R hip flex 16.8 and L 17.6. R knee ext 13.9 and L knee ext 14. R knee flex 10.9 and L 12.4. R hip abd 13.7 L hip abd 13.3. Trunk AROM: flexion 75%, Ext 10%, Rot B 75%, Sb B 75%. Patella DTR's 2+/3. SLR - B but HS tightness. Able to Bridge but she has increase back pain with that. SLUMP test +on the R for back pain and no back pain on the L. walking on heels and toes. Able to RUBIN with increase back pain more on the R. Palpation: Hyper-sensitive/Tender along the R sided paraspinals and center of spine - Balance/Special Test Scores Oswestry Low Back Score: 22 - Goals Goal 1:: I HEP Goal Time Frame: 6-8 Weeks Goal 2:: Sit with upright posture during treatment sessions Goal Time Frame: 6-8 Weeks Goal 3:: Decrease back pain with standing to be able to stand and do the dishes without having pain Goal Time Frame: 6-8 Weeks Goal 4:: Increase Trunk AROM to WFL (at time of eval: Trunk AROM: flexion 75%, Ext 10%, Rot B 75%, Sb B 75%) Goal Time Frame: 6-8 Weeks - Rehabilitation Potential Rehabilitation Potential: Good - Anticipated Interventions Patient/Client Instruction: Educate patient on: Condition, Plan of Care For the Purpose of:: To decrease pain, To increase ROM, To improve nutrient delivery to tissue, To improve muscle performance and motor function, To improve ability to perform ADL's, To improve performance and independence with ADL's, To decrease level of supervision to perform tasks, To improve ability of physical actions for home/community/work/leisure, To improve gait and locomotor functions, To improve health of tissue, To decrease soft tissue restriction, To increase flexibility/ROM Therapeutic Exercise to Include: Strength training, Postural training, Flexibilty training, Neuromotor development, Active ROM, Dynamic Lumbar Stabilization For the Purpose of:: To decrease pain, To increase ROM, To improve muscle performance and motor function, To improve ability to perform ADL's, To increase tolerance to activity/condition/position, To improve performance and independence with ADL's, To improve ability of physical actions for home/community/work/leisure, To improve gait and locomotor functions, To improve health of tissue, To decrease soft tissue restriction, To increase flexibility/ROM Manual Therapy Techniques to Include: Mobilization, Passive ROM, Soft tissue mobilization For the Purpose of:: To decrease pain, To increase ROM, To improve nutrient delivery to tissue, To improve muscle performance and motor function, To improve ability to perform ADL's, To increase tolerance to activity/condition/position, To improve performance and independence with ADL's, To decrease level of supervi russell to perform tasks, To improve health of tissue, To decrease soft tissue restriction, To increase flexibility/ROM Thank you for the opportunity to evaluate your patient. For Medicare and Medicare HMO plans, please review the plan of care and approve it. It will need to be FAXED BACK to us at [phone] for Medicare purposes. For Medicare only, by signing this I certify the plan of care. Please let me know if there are questions or concerns regarding this plan of care. Physician Signature: Date:
--- NOTE | 2022-11-14 10:58 | HP.PTDCSUM ---
Discharge Summary D/C summary: It has been my pleasure to treat YOLANDA QUINONEZ referred by DAYDAY Hernandez, with the diagnosis of Chronic LBP without sciatica for a total of 9 visit(s). Discharge Date: 11/14/22 Please see the following information for a summary of their discharge status. Subjective Subjective: Pt reports that now she has pain on the L side and her pain is all over. She does the exercises at home and they seem to help at the moment but it does not get better. Strength has improved. ROM is better but not 100%. Pain is no change. She is going to go back to her ortho Dr as her pain is no better. She is noticing her posture and able to correct. Not able to stand long enough to do dishes without pain. Pain back pain: Pain Intensity (Out of 10): 7 Overall Improvement % Improvement: 60 Objective Objective/Function: Trunk AROM: flexion 85%, Ext 50%, Rot B 75%, Sb B 75% Goals Goal 1:: I HEP Goal Progress: Goal Met Goal 2:: Sit with upright posture during treatment sessions Goal Progress: Goal Met Goal 3:: Decrease back pain with standing to be able to stand and do the dishes without having pain Goal Progress: Not Progressing Goal 4:: Increase Trunk AROM to WFL (at time of eval: Trunk AROM: flexion 75%, Ext 10%, Rot B 75%, Sb B 75%) Goal Progress: Progressing Plan Plan: Pt to go back to ortho Dr as pain is no better. She reports that strength is better, ROM is somewhat better but pain is all of the place. D/C Information Discharge Comments: DC PT back to physician d/c sentence: If there are questions or concerns regarding this patient's physical therapy, please feel free to call me at [phone]. Thank you for the referral of this patient. Sincerely, Ana Rosa David, MPT Balance/Gait/Functional tests Balance/Special Test Scores Oswestry Low Back Score: 25
== END 2022-11-14 19:00 | disposition home or self-care (01) ==
LOC: PT 10:30
PROVIDERS: Referring Provider Nurse Practitioner; Visit Provider Nurse Practitioner
DX: M54.50 Low back pain, unspecified (principal); G89.29 Other chronic pain
CPT/HCPCS: 97110; 97161; 97530

== ENCOUNTER → 2022-12-27 | Outpatient (CLI) | payer MEDICAID, SELFPAY ==
[2022-12-29 12:09] LABS: QNTFERON TB Mitogen Value > 10.00 IU/mL (.); QNTFERON TB Nil Value 0.01 IU/mL (.); QNTFERON TB1+ Ag Value 0.01 IU/mL (.); QNTFERON TB2+ Ag Value 0.01 IU/mL (.); QNTIFERON TB Positive Criteria Negative (Negative)
== END | disposition home or self-care (01) ==
LOC: MTLAB 13:18
PROVIDERS: Referring Provider Physician Assistant; Visit Provider Physician Assistant
DX: Z02.1 Encounter for pre-employment examination (principal)
CPT/HCPCS: 36415; 86480

== ENCOUNTER → 2023-01-07 | Outpatient (CLI) | payer MEDICAID, SELFPAY ==
--- NOTE | 2023-01-07 09:30 | MRI_ITS ---
HISTORY: Chronic back pain x 2 years, dull low back pain, no surgery. TECHNIQUE: Multiplanar and multisequence MR images of the lumbar spine were obtained without intravenous contrast. 112 images. COMPARISON: XR 01/10/2022. FINDINGS: VERTEBRAE: Vertebral body heights maintained. Mild degenerative endplate changes with Schmorl''s nodes of T10-11, T11-12, at T12-L1. Mild degenerative endplate changes with degenerative loss of T2 intervertebral disc signal at L4-5 and L5-S1 ALIGNMENT: No anterior or posterior subluxation. SPINAL CANAL: Normal morphology and position of the conus medullaris at T12-L1. No gross epidural collection or ligamentous disruption. INTERVERTEBRAL DISCS: T12-L1: No significant posterior disc protrusion, central canal stenosis, or foraminal narrowing based on the sagittal images. L1-2, L2-3, L3-4: No significant posterior disc protrusion, central canal stenosis, or foraminal narrowing. L4-5: Mild right foraminal disc protrusion with mild facet arthropathy resulting in minimal narrowing of the thecal sac and moderate right foraminal narrowing with right L5 for nerve root abutment. L5-S1: Mild central disc protrusion with mild facet arthropathy resulting in minimal narrowing of thecal sac and mild bilateral foraminal narrowing. SOFT TISSUES: Posterior subcutaneous edema present. MRI/Spine Lumbar (Routine) IMPRESSION: Mild right foraminal disc protrusion at L4-5 resulting in moderate right foraminal narrowing with nerve root abutment. Mild central disc protrusion of L5-S1 resulting in mild bilateral foraminal narrowing. Electronically Signed: Silvia Cardona MD at 15:26 EDT ,
== END | disposition home or self-care (01) ==
LOC: MRI 10:52
PROVIDERS: Referring Provider Orthopaedic Surgery; Visit Provider Orthopaedic Surgery
DX: M54.50 Low back pain, unspecified (principal)
CPT/HCPCS: 72148

== ENCOUNTER 2023-02-18 12:40 | Emergency (ER) | payer MEDICAID, SELFPAY ==
[2023-02-18 12:41] VITALS: BP 132/83; PULSE 108; RESP 18; TEMP 35.8; O2SAT 99; BMI 42.0
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
--- NOTE | 2023-02-18 12:54 | US_ITS ---
HISTORY: right pelvic pain -- LMP 02/04-02/09, STARTED BLEEDING AGAIN 3 DAYS AGO -- RLQ PAIN X 3 DAYS. TECHNIQUE: Transvaginal pelvic ultrasound was performed with kaiser scale , spectral Doppler, and color Doppler evaluation. 48 images. COMPARISON: CT 02/09/2019. FINDINGS: UTERUS: 7.1 x 2.6 x 3.8 cm. Trace fluid in the cervix ENDOMETRIAL THICKNESS: 6-7 mm. RIGHT OVARY: 2.6 x 3.6 x 3.6 cm with several follicles. Vascular flow demonstrated. No adnexal masses LEFT OVARY: 2.4 x 3.6 x 3.9 cm with several follicles. Vascular flow demonstrated. No adnexal masses FREE FLUID: None. US/Transvaginal Non- IMPRESSION: Vascular flow demonstrated to both ovaries Electronically Signed: Silvia Cardona MD at 14:45 EST ,
[2023-02-18 13:10] LABS: Absolute Lymphocyte Count 1.66 X10^3/uL (0.83-4.51); Absolute Neutrophil Count 4.8 X10^3/uL (2.0-7.7); Basophil# 0.04 X10^3/uL; Basophil% 0.6 % (0-1); Eosinophil# 0.07 X10^3/uL; Hematocrit 41.8 % (37-47); Hemoglobin 14.3 g/dL (12.0-15.0); Lymphocyte # 1.66 X10^3/ul (0.83-4.51); Lymphocyte % 23.2 % (19-41); Mean Corp Hgb Conc 34.2 g/dL (32-36); Mean Corpuscular Hgb 32.6 pg (27.0-32.0); Mean Corpuscular Volume 95.2 fL (81-99); Mean Platelet Vol. 9.5 fl (6.2-12.0); Monocyte# 0.56 X10^3/uL; Monocyte% 7.8 % (0-10); NRBC Flagged by Analyzer 0 % (0-5); Neutrophil # 4.78 X10^3/uL (2.7-7.7); Neutrophil % 66.8 % (47-70); Platelet Count 296 K/mm3 (150-450); RBC Distribution Width CV 12.3 % (11.6-14.6); RBC Distribution Width SD 42.8 fl (35.1-43.9); Red Blood Count 4.39 M/mm3 (4.2-5.4); White Blood Count 7.2 K/mm3 (4.4-11.0)
[2023-02-18] MEDS: Ondansetron 4 MG/2 ML Vial IV (13:10)
[2023-02-18 13:23] LABS: Anion Gap 2 (5-15); BUN 12 mg/dL (7-18); BUN/Creat Ratio 16.1 RATIO (10-20); Calcium,Total 8.9 mg/dL (8.5-10.1); Chloride 109 mmol/L (98-107); Creatinine, Serum 0.74 mg/dL (0.55-1.02); EST Glomerular Filtration Rate 102 mL/min (>60); Est Glom Filt Rate - Afr Amer 124 mL/min (>60); Estimated Creatinine Clearance 106.39 ml/min; Glucose 109 mg/dL (74-106); Potassium 3.8 mmol/L (3.5-5.1); Sodium Level 141 mmol/L (136-145)
[2023-02-18 13:34] LABS: Internal QC Validated? YES +Cl - CLEAR BKGD; Pregnancy, Serum, hCG Quali. NEGATIVE Negative
[2023-02-18 13:56] LABS: Color, Urine Yellow (Yellow); Glucose, Dipstick Normal (Normal); Ketone-Dipstick 5 mg/dl (Negative); Leukocyte Esterase-Dipstick 25 /ul (Negative); Nitrite-Dipstick Negative (Negative); Occult Blood-Urine 250 /ul (Negative); Protein-Dipstick 30 mg/dl (Negative); Specific Gravity, Urine 1.025 (1.002-1.030); Urine Bilirubin Dipstick Negative (Negative); Urine Clarity Cloudy (Clear); Urine Urobilinogen Normal (Normal)
[2023-02-18 14:04] LABS: Bacteria RARE /hpf (None Seen); Mucous, Urine RARE /hpf (<or=2+); Red Blood Cells-Urine 10-25 SEEN /hpf (0-5); Squamous Epithelial Cells - UA 0-5 SEEN /hpf (5-10); White Blood Cells 0-5 SEEN /hpf (0-5)
[2023-02-18 14:45] VITALS: BP 109/59; PULSE 87; RESP 18; O2SAT 100
[2023-02-18 14:56] VITALS: BP 103/60; PULSE 89; RESP 18; O2SAT 100
== END 2023-02-18 15:04 | disposition home or self-care (01) ==
PROVIDERS: Physician Assistant; Emergency Provider Emergency Medicine; Visit Provider Emergency Medicine
DX: N93.8 Other specified abnormal uterine and vaginal bleeding (principal); R11.0 Nausea; R10.2 Pelvic and perineal pain; F17.210 Nicotine dependence, cigarettes, uncomplicated; F41.9 Anxiety disorder, unspecified; Z79.899 Other long term (current) drug therapy
CPT/HCPCS: 76830; 80048; 81001; 84703; 85025; 96374; 99285; A4216; J2405

== ENCOUNTER 2023-07-01 01:16 | Outpatient (REF) | payer SELFPAY ==
[2023-07-01 01:16] VITALS: BP 134/109; PULSE 91; RESP 18; O2SAT 98
[2023-07-01 01:17] VITALS: BP 134/109; PULSE 92; RESP 24; TEMP 36.8; O2SAT 96; BMI 43.7
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
[2023-07-01 02:16] VITALS: BP 125/84; PULSE 109; RESP 17; O2SAT 98
[2023-07-01 02:16] LABS: Absolute Lymphocyte Count 1.83 X10^3/uL (0.83-4.51); Absolute Neutrophil Count 8.4 X10^3/uL (2.0-7.7); Basophil# 0.06 X10^3/uL; Basophil% 0.5 % (0-1); Eosinophil# 0.05 X10^3/uL; Eosinophils% 0.4 % (0-5); Hematocrit 42.7 % (37-47); Hemoglobin 14.9 g/dL (12.0-15.0); Lymphocyte # 1.83 X10^3/ul (0.83-4.51); Mean Corp Hgb Conc 34.9 g/dL (32-36); Mean Corpuscular Volume 94.5 fL (81-99); Mean Platelet Vol. 9.7 fl (6.2-12.0); Monocyte# 0.97 X10^3/uL; Monocyte% 8.5 % (0-10); NRBC Flagged by Analyzer 0 % (0-5); Neutrophil # 8.43 X10^3/uL (2.7-7.7); Neutrophil % 73.5 % (47-70); Platelet Count 294 K/mm3 (150-450); RBC Distribution Width CV 12.5 % (11.6-14.6); RBC Distribution Width SD 43.4 fl (35.1-43.9); Red Blood Count 4.52 M/mm3 (4.2-5.4); White Blood Count 11.5 K/mm3 (4.4-11.0)
[2023-07-01 02:26] LABS: Internal QC Validated? YES +Cl - CLEAR BKGD; Pregnancy, Serum, hCG Quali. NEGATIVE Negative; Record Kit Lot#, Serum Preg. 718086
[2023-07-01 02:29] LABS: Anion Gap 5 (5-15); BUN 10 mg/dL (7-18); BUN/Creat Ratio 12.9 RATIO (10-20); Calcium,Total 8.4 mg/dL (8.5-10.1); Chloride 108 mmol/L (98-107); Creatinine, Serum 0.78 mg/dL (0.55-1.02); EST Glomerular Filtration Rate 97 mL/min (>60); Est Glom Filt Rate - Afr Amer 117 mL/min (>60); Glucose 109 mg/dL (74-106); Potassium 3.7 mmol/L (3.5-5.1); Sodium Level 139 mmol/L (136-145)
[2023-07-01 03:00] VITALS: BP 119/79; PULSE 94; RESP 19; O2SAT 97
[2023-07-01 04:00] VITALS: BP 110/64; PULSE 91; RESP 16; O2SAT 97
[2023-07-01] MEDS: Acetaminophen 325 MG Tablet 650 MG PO (04:02)
[2023-07-01 04:27] LABS: Amphetamine Urine VISTA NEGATIVE (<1000 ng/mL); Barbiturate Urine VISTA NEGATIVE (< 200 ng/mL); Benzodiazepine Urine VISTA NEGATIVE (< 200 ng/mL); Cocaine Urine VISTA NEGATIVE (< 300 ng/mL); Ecstacy Urine VISTA NEGATIVE (< 500 ng/mL); Methadone Urine VISTA NEGATIVE (< 300 ng/mL); PCP Urine VISTA NEGATIVE (< 25 ng/mL); THC Urine VISTA NEGATIVE (< 50 ng/mL); Vista UDS pH Range 5
[2023-07-01 04:51] VITALS: BP 108/69; PULSE 89; RESP 16; TEMP 36.6; O2SAT 99
== END 2023-07-01 04:56 ==
LOC: ED 01:16
PROVIDERS: Visit Provider Emergency Medicine
DX: S20.20XA Contusion of thorax, unspecified, initial encounter (principal); F10.129 Alcohol abuse with intoxication, unspecified; Y90.6 Blood alcohol level of 120-199 mg/100 ml; F32.A Depression, unspecified; F41.9 Anxiety disorder, unspecified; F17.210 Nicotine dependence, cigarettes, uncomplicated
CPT/HCPCS: 70450; 71260; 72125; 74177; 80048; 80320; 84703; 85025; 93005; A4216; Q9967; 80307; G0480

== ENCOUNTER 2023-07-04 12:53 | Emergency (ER) | payer MEDICAID, SELFPAY ==
[2023-07-04 12:55] VITALS: BP 148/82; PULSE 90; RESP 16; TEMP 36.6; O2SAT 100
[2023-07-04 13:13] VITALS: O2SAT 98
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
[2023-07-04 14:43] VITALS: BP 128/74; PULSE 75; RESP 16; TEMP 36.2; O2SAT 97
== END 2023-07-04 14:45 | disposition home or self-care (01) ==
PROVIDERS: Emergency Provider Emergency Medicine; Visit Provider Emergency Medicine
DX: S22.31XA Fracture of one rib, right side, initial encounter for closed fracture (principal); V49.9XXA Car occupant (driver) (passenger) injured in unspecified traffic accident, initial encounter; F17.210 Nicotine dependence, cigarettes, uncomplicated; E66.9 Obesity, unspecified
CPT/HCPCS: 71111; 99282

== ENCOUNTER → 2023-12-18 | Outpatient (CLI) | payer MEDICAID, SELFPAY ==
[2023-12-18 10:20] LABS: Hematocrit 43.5 % (37-47); Hemoglobin 14.8 g/dL (12.0-15.0); Mean Corpuscular Hgb 32.7 pg (27.0-32.0); Mean Platelet Vol. 10.2 fl (6.2-12.0); Platelet Count 326 K/mm3 (150-450); RBC Distribution Width CV 13.4 % (11.6-14.6); RBC Distribution Width SD 47.5 fl (35.1-43.9); Red Blood Count 4.53 M/mm3 (4.2-5.4); White Blood Count 7.1 K/mm3 (4.4-11.0)
[2023-12-18 10:36] LABS: Vitamin D,25 Hydroxy 29.3 ng/mL
[2023-12-18 10:39] LABS: Hemoglobin A1c 4.3 % (3.8-5.6)
[2023-12-18 10:42] LABS: AST(SGOT) 26 U/L (15-37); Alanine Aminotransfer ALT/SGPT 65 U/L (13-56); Albumin, Serum 3.6 g/dL (3.2-5.0); Alkaline Phosphatase 98 U/L (45-117); Anion Gap 4 (5-15); BUN 7 mg/dL (7-18); BUN/Creat Ratio 8.6 RATIO (10-20); Calcium,Total 9.1 mg/dL (8.5-10.1); Chloride 108 mmol/L (98-107); Creatinine, Serum 0.81 mg/dL (0.55-1.02); EST Glomerular Filtration Rate 92 mL/min (>60); Est Glom Filt Rate - Afr Amer 111 mL/min (>60); Globulin 3.7 g/dL (2.2-4.2); Glucose 90 mg/dL (74-106); Potassium 4.5 mmol/L (3.5-5.1); Protein, Total 7.3 g/dL (6.4-8.2); Sodium Level 141 mmol/L (136-145)
== END | disposition home or self-care (01) ==
LOC: LAB 09:37
DX: Z79.899 Other long term (current) drug therapy (principal)
CPT/HCPCS: 36415; 80053; 82306; 83036; 84443; 85027

== ENCOUNTER → 2024-05-08 | Outpatient (CLI) | payer MEDICAID, SELFPAY ==
--- NOTE | 2024-05-08 15:17 | RAD_ITS ---
EXAM: XR Left Foot Complete, 3 or More Views CLINICAL INDICATION: TECHNIQUE: Frontal, lateral and oblique views of the left foot. COMPARISON: No relevant prior studies available. FINDINGS: BONES/JOINTS: See below. SOFT TISSUES: Soft tissue swelling without acute fracture. No radiopaque foreign body. RAD/Foot min 3 Views IMPRESSION: 1. Soft tissue swelling without acute fracture. 2. If symptoms persist, repeat radiograph in 7-10 days recommended. Reading Location: [facility]
== END | disposition home or self-care (01) ==
LOC: MTRAD 15:17
PROVIDERS: Referring Provider Physician Assistant; Visit Provider Physician Assistant
DX: M79.672 Pain in left foot (principal)
CPT/HCPCS: 73630

== ENCOUNTER → 2024-08-01 | Outpatient (CLI) | payer MEDICAID, SELFPAY ==
[2024-08-01 17:39] LABS: hCG Titer Quant., Serum < 1 mIU/mL (<9 non-preg)
== END | disposition home or self-care (01) ==
LOC: LAB 16:18
PROVIDERS: Referring Provider Anesthesiology Pain Medicine; Visit Provider Anesthesiology Pain Medicine
DX: Z32.00 Encounter for pregnancy test, result unknown (principal)
CPT/HCPCS: 36415; 84702

== ENCOUNTER 2024-10-03 11:47 | Outpatient (CLI) | payer MEDICAID, SELFPAY | END 2024-10-03 23:59 | disposition home or self-care (01) | LOC: LABSPEC 11:47 | PROVIDERS: Visit Provider Physician Assistant Surgical | DX: N89.8 Other specified noninflammatory disorders of vagina (principal) ==

== ENCOUNTER 2024-10-31 12:27 | Emergency (ER) | payer MEDICAID, SELFPAY ==
[2024-10-31 12:27] VITALS: BP 150/79; PULSE 91; RESP 14; TEMP 36.6; O2SAT 98; BMI 37.4
--- NOTE | 2024-10-31 12:40 | ED.VIS.BACK ---
HPI History of Present Illness Chief Complaint: Back Informant: patient Onset/Context/Timing Onset: Days (4) Injury: fall Timing: Continuous Quality: Sharp and Throbbing Location: Lumbar and Buttock Worsened by: improves with Nothing Relieved by: Nothing Associated Symptoms Associated Symptoms: Negative for Numbness, Tingling, Radiation to Right Leg, Radiation to Left Leg, Fever, Abdominal Pain, Dysuria, Unable to Ambulate, Unable to Transfer, Urinary Retention, Urinary Incontinence, Constipation or Fecal Incontinence Narrative Narrative: Patient presents with back pain that has been constant for the past 4 days. Patient states she fell 3 days ago. Patient states she landed on her low back and left buttock. Patient states her pain is sharp and throbbing. Patient states her pain is mainly over the left lower lumbar area and left gluteal area. Patient states nothing makes it worse and nothing makes it better. Patient denies any radiation of the pain to her lower extremities. Patient denies any paresthesias or weakness. Patient denies any bowel or bladder changes. Patient denies any saddle anesthesia. [facility] Medical History Left foot pain Physical exam, pre-employment Acute maxillary sinusitis, unspecified Anxiety Depression COVID-19 Home Medications ?Medication ?Instructions ?Recorded ?Last Taken ?Type multivitamin 1 tab PO QAM 04/22/24 Unknown History prednisone 10 mg tablet 10 mg PO DAILY #30 tabs 05/08/24 Unknown Rx naproxen 500 mg tablet 500 mg PO BID PRN #20 tabs 10/31/24 Unknown Rx Allergy/AdvReac Type Severity Reaction Status Date / Time amoxicillin Allergy Rash Verified 10/03/24 11:33 codeine AdvReac PASSED Verified 10/03/24 11:33 OUT Family History Mother Anxiety and depression Lupus Father Anxiety and depression Diabetes Type II Schizophrenia Paranoia Grandmother Colon cancer Diabetes Type II Hypertension Surgical History History of placement of ear tubes History of tonsillectomy and adenoidectomy Social History household members: significant other and children current occupational status: employed sexually active: Yes Smoking Status: Never smoker alcohol intake: never substance use type: does not use what type of physical activity do you participate in: additional details: Cardio frequency: 5-6 times per week duration: 30-45 minutes/day ROS ROS ED Constitutional Constitutional ED: Denies chills or fever(s) Eyes Eyes: Denies blurry vision or change in vision ENT ENT ED: Denies rhinorrhea or sore throat Cardiovascular Cardiovascular: Denies chest pain or palpitations Respiratory/Chest Respiratory/Chest: Denies cough or dyspnea Gastrointestinal Gastrointestinal: Denies nausea or vomiting Genitourinary Genitourinary ED: Denies dysuria or hematuria Musculoskeletal Musculoskeletal: Denies back pain or neck pain Integumentary Reports rash; Denies abscess Neurologic Neurologic: Denies headache(s) or weakness Allergic/Immunologic Allergic/Immunologic ED: Denies mouth swelling or urticaria EXAM Physical Exam Const Vital Signs: 10/31/24 12:27 Temperature 98 F Temperature Source Temporal Pulse Rate 91 Respiratory Rate 14 Blood Pressure 150/79 H Blood Pressure Mean 102 Pulse Ox 98 Oxygen Delivery Method Room Air Positive well nourished and well developed Constitutional Narrative: BMI is 37.4. General Appearance ED: well developed and NAD HEENT Reports moist mucous membranes Neck supple and no JVD Resp normal respiratory effort and clear to auscultation bilaterally Cardio regular rate and regular rhythm GI soft to palpation, non-tender and non-distended Back/Spine Back/Spine Narrative: There is tenderness on palpation over the left lumbar paraspinal muscles and left gluteal muscles. There is some mild tenderness over the iliac crest and sciatic notch. Range of motion was limited in all motions secondary to pain. Strength is 5/5 bilaterally in the lower extremities. There are no sensory deficits noted. Deep tendon reflexes are 2/4 bilaterally in the lower extremities. Straight leg raises were negative bilaterally. Lumbar Spine / Lower Back: straight leg raise negative bilaterally Neuro oriented x3 and no sensory deficits noted Sensorium / Orientation: alert Motor Exam: strength 5/5 throughout Deep Tendon Reflexes: Rt Patellar (L4): 2+, Lt Patellar (L4): 2+, Rt Ankle (S1): 2+ and Lt Ankle (S1): 2+ Deep Tendon Reflexes Back: Rt Patellar (L4): 2+, Lt Patellar (L4): 2+, Rt Ankle (S1): 2+ and Lt Ankle (S1): 2+ Psych mental status grossly normal MDM MDM MDM Narrative Medical decision making narrative: Differential diagnosis includes lumbar compression fracture, spondylolisthesis, muscle strain, and contusion. X-rays of the lumbar spine will be obtained to assess for compression fracture and spondylolisthesis. History & Record Review Additional record(s) reviewed:: Prior outpatient record and Prior ED visit Radiography X-Ray: LS SPine, Normal, No Fracture and Normal Bony Alignment Diagnostic Testing: Clinical Impression(s) from Imaging Studies Lumbar Spine X-Ray 10/31/24 13:10 IMPRESSION: No acute fracture. Reading Location: [facility] X-rays of the lumbar spine were obtained. There are 2 views. My independent interpretation, there is no acute fracture or spondylolisthesis. There is no scoliosis noted. Radiologist also interpreted the x-rays and agrees. Treatment and Re-Evaluation Narrative: Patient was advised of her findings. Patient was instructed to use ice to the area. Patient was given a prescription for Naprosyn for pain. Patient was given restrictions for work. Patient was instructed to follow-up with her primary care physician in 5 to 7 days. Patient understood and was agreeable with the plan. All questions were answered. Discharge Plan Triage Chief Complaint: Back ED Provider: Jose E Luu Dx/Rx/DC Orders Clinical Impression: Acute lumbosacral myofascial strain, Fall Instructions: ED Back Sprain/Strain Prescriptions: New naproxen 500 mg tablet 500 mg PO BID PRN Qty: 20 0RF No Action multivitamin Tablet 1 tab PO QAM prednisone 10 mg tablet 10 mg PO DAILY Qty: 30 0RF Rx Instructions: 4 tablets daily x3 days, then 3 tablets daily x3 days, then 2 tablets daily x3 days, then 1 tablet daily x3 days Stand Alone Forms: Work Status Form Primary Care Provider: Care Physician,No Primary Referrals: Rubia Ventura MD [Med Staff - Hospice Physician] - 5-7 Days Care Physician,No Primary [Primary Care Provider] - Print Language: Dutch Disposition Disposition: Home, Self Care
--- NOTE | 2024-10-31 13:10 | RAD_ITS ---
EXAM: XR Lumbosacral Spine, 2 or 3 Views CLINICAL INDICATION: INJURY/PAIN TECHNIQUE: Frontal and lateral views of the lumbar spine and sacrum. COMPARISON: No relevant prior studies available. FINDINGS: VERTEBRAE: Unremarkable. No acute fracture. Normal alignment. SACRUM/COCCYX: Unremarkable as visualized. No acute fracture. DISC SPACES: No acute findings. No significant narrowing. SOFT TISSUES: Unremarkable. RAD/Lumbar Spine 2 or 3 Views IMPRESSION: No acute fracture. [facility]
[2024-10-31 14:09] VITALS: BP 132/88; PULSE 84; RESP 16; TEMP 37; O2SAT 99
--- NOTE | 2024-10-31 19:22 | CM.ED ---
Social Work Reason for visit: No PCP Patient verified that she does not currently have a PCP, [facility] provider list given. No further needs identified at this time. Enma Lugo, PATIENT CASE COORDINATOR, [employer]TIQUE JEWELRY REPAIRER
== END 2024-10-31 14:11 | disposition home or self-care (01) ==
PROVIDERS: Emergency Provider Emergency Medicine; Referring Provider Emergency Medicine; Visit Provider Emergency Medicine
DX: S39.012A Strain of muscle, fascia and tendon of lower back, initial encounter (principal); W19.XXXA Unspecified fall, initial encounter; Z86.16 Personal history of COVID-19
CPT/HCPCS: 72100; 99282

== ENCOUNTER → 2025-01-28 | Outpatient (CLI) | payer MEDICAID, SELFPAY ==
--- NOTE | 2025-01-28 13:44 | RAD_ITS ---
PROCEDURE: RAD/Foot min 3 Views
--- NOTE | 2025-01-28 13:44 | RAD_ITS ---
PROCEDURE: RAD/Ankle min 3 Views
== END | disposition home or self-care (01) ==
LOC: MTRAD 13:44
PROVIDERS: Referring Provider Physician Assistant; Visit Provider Physician Assistant
DX: M79.672 Pain in left foot (principal); S82.891A Other fracture of right lower leg, initial encounter for closed fracture
CPT/HCPCS: 73610; 73630